=== PATIENT | female | born 1980 | race Caucasian/White ===

== ENCOUNTER 2022-09-30 14:36 | Outpatient (CLI) | payer OTHER, SELFPAY ==
--- NOTE | 2022-09-30 15:20 | CRLHL7_ITS ---
For Patients: As a result of the Century Cures Act, medical imaging exams and procedure reports are released immediately into your electronic medical record. You may view this report before your referring provider. If you have questions, please contact your health care provider. BILATERAL SCREENING MAMMOGRAM WITH COMPUTER-AIDED DETECTION AND TOMOSYNTHESIS TECHNIQUE: CC and MLO views were obtained. These mammographic images have been obtained using full-field digital technique. These mammographic images were interpreted with the benefit of computer-aided detection. Breast Tomosynthesis was used in this interpretation. COMPARISON FILM: Baseline. FINDINGS: The breasts are almost entirely fatty IMPRESSION: There is no radiographic evidence for malignancy. ASSESSMENT: BI-RADS Category 1: Negative RECOMMENDATION: Routine screening mammogram in 1 year. A lay language report of this examination will be provided to the patient. Rudy Rios M.D. Diagnostic Radiologist [email or web address] Transcribed: 1:48 p.mBrigido monae/Dictated by: Rudy Rios MD @ 10/01/2022 9:20:00 AM (Electronically Signed)
== END 2022-09-30 14:37 | disposition home or self-care (01) ==
PROVIDERS: PCP Family Medicine; Visit Provider Family Medicine
DX: Z12.31 Encounter for screening mammogram for malignant neoplasm of breast (principal)
CPT/HCPCS: 77063; 77067

== ENCOUNTER 2023-02-14 22:02 | Emergency (ER) | payer OTHER, SELFPAY ==
[2023-02-14 22:12] VITALS: BP 143/93; PULSE 95; RESP 20; TEMP 36.3; O2SAT 98; BMI 44.7
--- NOTE | 2023-02-14 22:17 | CRLHL7_ITS ---
For Patients: As a result of the Cures Act, medical imaging exams and procedure reports are released immediately into your electronic medical record. You may view this report before your referring provider. If you have questions, please contact your health care provider. INDICATION: Smashed with tree ranch, pain and swelling. TECHNIQUE: Left hand 3 views. Permanently recorded images are archived. COMPARISON: None. FINDINGS: No acute fracture or aggressive osseous lesion. Alignment is normal. The joint spaces are preserved. The soft tissues are unremarkable. IMPRESSION: No evidence of an acute bony abnormality. Dictated by Brain Nguyen MD @ 02/14/2023 11:49:09 PM (Electronically Signed)
[2023-02-14] MEDS: ACETAMINOPHEN 500 MG TABLET 1000 MG PO (22:56)
[2023-02-14 23:16] VITALS: BP 146/81; PULSE 84; RESP 20; O2SAT 99
--- NOTE | 2023-02-14 23:52 | ED_ITS ---
HPI - Extremity Injury (Upper) General Chief Complaint: Extremity Pain/Injury, Upper Stated Complaint: smashed her left hand Time Seen by Provider: 02/14/23 22:42 History of Present Illness HPI narrative: Patient is healthy 42-year-old woman who is not up-to-date on her tetanus shot who was trimming trees tonight when a large tree branch swung down and hit her in the left hand slamming her hand against the latter. Patient has pain across the posterior digits 2 through 5 with most impressive pain over the PIP of the 3rd digit. She has minimal skin breakdown. Her tetanus shot was done in 2011. She did not hit her head she did not lose consciousness she has no other injuries. She does have some assorted abrasions on the posterior hand. Related Data Home Medications Medication Instructions Recorded Confirmed albuterol sulfate 90 mcg/actuation 2 inhalation PRN 04/17/22 02/13/23 aerosol inhaler cetirizine 10 mg tablet 10 mg PO DAILY 04/17/22 02/13/23 cholecalciferol (vitamin D3) 125 125 mcg PO DAILY 04/17/22 02/13/23 mcg (5,000 unit) tablet cyclobenzaprine 10 mg tablet 10 mg PO TID 04/17/22 02/13/23 esomeprazole magnesium 20 mg 20 mg PO BID 04/17/22 02/13/23 capsule,delayed release fluticasone 100 mcg-salmeterol 50 1 inhalation BID 04/17/22 02/13/23 mcg/dose blistr powdr for inhalation fluticasone propionate 50 2 spray intranasal QDAY 02/13/23 02/13/23 mcg/actuation nasal spray,suspension (Flonase Allergy Relief) Previous Rx's Medication Instructions Recorded bupropion HCl 150 mg 24 hr tablet, 150 mg PO DAILY #90 tabs 04/17/22 extended release escitalopram oxalate 20 mg tablet 20 mg PO QDAY #90 tabs 04/17/22 (Lexapro) Allergies Allergy/AdvReac Type Severity Reaction Status Date / Time penicillin V Allergy Intermediate Rash Verified 02/13/23 09:49 nickel Allergy Mild Rash Verified 02/13/23 09:49 estrogens, conjugated AdvReac Intermediate dvt Verified 02/13/23 09:49 seasonal Allergy Unknown Sneezing Uncoded 02/13/23 09:49 Review of Systems Status of ROS: Reports: 10 or more systems reviewed and unremarkable except as noted in History and below [facility] Medical History Pain in both knees ?M25.561 - Pain in right knee (ICD-10) ?M25.562 - Pain in left knee (ICD-10) Obstructive sleep apnea syndrome (2018) ?G47.33 - Obstructive sleep apnea (adult) (pediatric) (ICD-10) Mild persistent asthma ?J45.30 - Mild persistent asthma, uncomplicated (ICD-10) Gastroesophageal reflux disease without esophagitis (11/07/15) ?K21.9 - Gastro-esophageal reflux disease without esophagitis (ICD-10) Depression ?F32.A - Depression, unspecified (ICD-10) Anxiety ?F41.9 - Anxiety disorder, unspecified (ICD-10) Acute deep vein thrombosis (DVT) of lower extremity (02/17/20) ?I82.409 - Acute embolism and thrombosis of unspecified deep veins of unspecified lower extremity (ICD-10) Surgical History History of carpal tunnel surgery of right wrist (2016) ?Z98.890 - Other specified postprocedural states (ICD-10) 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 Smoking Status: Never smoker Do you use any of these nicotine containing products: None How often do you have a drink containing alcohol: never AUDIT-C Alcohol total score: 0 Non-prescribed substance use: denies use Little interest or pleasure in doing things: several days Feeling down, depressed, or hopeless: several days Exam Narrative: Exam Narrative: EXAM GENERAL: Patient appears comfortable and well. EYES: No scleral icterus. ENT: Tympanic membranes and oropharynx normal. THYROID: no thyroid nodules or thyromegaly. LYMPH: No supraclavicular or cervical lymphadenopathy. SKIN: Visible skin seen during exam normal or with benign process only. EXT: Swelling and ecchymosis noted of the digits 2 through 5 posteriorly left hand. Assorted abrasions noted also on the posterior aspect of left hand. ABD: Soft, non tender, non distended. PSYCH: Good eye contact, speech is not pressured. Const: Vital Signs, click to edit/add: Vital Signs - 24 hr 02/14/23 22:12 02/14/23 23:16 Temperature 97.3 F L Pulse Rate [Pulse Oximeter] 95 84 Respiratory Rate 20 20 Blood Pressure [Ri ght Forearm] 143/93 H 146/81 H Pulse Oximetry 98 99 Oxygen Delivery Me thod Room Air Room Air Course Course Hospital Course: X-ray series upon my review shows no acute fractures of left hand. Wounds were cleaned and dressed. Vital Signs Vital signs: Initial Vital Signs Temperature 97.3 F L 02/14/23 22:12 Temperature Source Temporal Artery Scan 02/14/23 22:12 Pulse Rate 95 02/14/23 22:12 Respiratory Rate 20 02/14/23 22:12 Blood Pressure 143/93 H 02/14/23 22:12 Blood Pressure Mean 109 H 02/14/23 22:12 Pulse Oximetry 98 02/14/23 22:12 Oxygen Delivery Method Room Air 02/14/23 22:12 Vital Signs Temperature 97.3 F L 02/14/23 22:12 Pulse Rate 95 02/14/23 22:12 Respiratory Rate 20 02/14/23 22:12 Blood Pressure 143/93 H 02/14/23 22:12 Pulse Oximetry 98 02/14/23 22:12 Oxygen Delivery Method Room Air 02/14/23 22:12 Temperature 97.3 F L 02/14/23 22:12 Pulse Rate 84 02/14/23 23:16 Respiratory Rate 20 02/14/23 23:16 Blood Pressure 146/81 H 02/14/23 23:16 Pulse Oximetry 99 02/14/23 23:16 Oxygen Delivery Method Room Air 02/14/23 23:16 MDM - Extremity Injury (Upper) MDM Narrative Medical decision making narrative: Patient is a healthy 42-year-old woman who presents with contusion and abrasions of left hand. X-ray series negative for fracture. Did clean the abrasions and dressed her wounds. Her tetanus shot was updated and she will follow-up with her primary physician as needed. Differential Diagnosis Differential diagnosis: Likely sprain and strain of wrist, finger sprain, dislocation of finger and fracture of hand Discharge Plan Discharge Clinical Impression: Abrasion Condition: Stable Instructions: Abrasion (ED) Additional Instructions: Ice Tylenol Daily dressing changes Follow-up as needed Activity Level: No Restrictions Discharge Diet: Regular Prescriptions: No Action cholecalciferol (vitamin D3) 125 mcg (5,000 unit) tablet 125 mcg PO DAILY esomeprazole magnesium 20 mg capsule,delayed release(DR/EC) 20 mg PO BID cetirizine 10 mg tablet 10 mg PO DAILY albuterol sulfate 90 mcg/actuation HFA aerosol inhaler 2 inhalation PRN fluticasone propion-salmeterol 100-50 mcg/dose blister with device 1 inhalation BID cyclobenzaprine 10 mg tablet 10 mg PO TID bupropion HCl 150 mg tablet extended release 24 hr 150 mg PO DAILY Qty: 90 4RF escitalopram oxalate [Lexapro] 20 mg tablet 20 mg PO QDAY Qty: 90 4RF fluticasone propionate [Flonase Allergy Relief] 50 mcg/actuation spray,suspension 2 spray intranasal QDAY Rx Instructions: administer into each nostril Follow Up/Referrals: Alda Rod MD [Primary Care Provider] - Stand Alone [facility]
--- NOTE | 2023-02-15 00:15 | PC.NURSE ---
wound cleansed and dressed, patient states understanding to DC instructions with no further questions
== END 2023-02-15 00:14 | disposition home or self-care (01) ==
PROVIDERS: Emergency Provider Internal Medicine; PCP Family Medicine
DX: S60.512A Abrasion of left hand, initial encounter (principal); W20.8XXA Other cause of strike by thrown, projected or falling object, initial encounter
CPT/HCPCS: 73130; 90471; 99283; A9270

== ENCOUNTER 2023-05-01 10:10 | Emergency (ER) | payer OTHER, SELFPAY ==
[2023-05-01] VITALS (13 sets, daily range): BP systolic 116–118; BP diastolic 70–78; PULSE 63–87; RESP 16; TEMP 36.3; O2SAT 92–98
[2023-05-01] MEDS: predniSONE 20 MG TABLET 60 MG PO (10:42)
--- NOTE | 2023-05-01 11:22 | ED_ITS ---
HPI - General Adult General Chief complaint: Allergic Reaction Stated complaint: allergic reaction- nuts Time Seen by Provider: 05/01/23 10:32 Source: patient Mode of arrival: ambulatory Limitations: no limitations History of Present Illness HPI narrative: Patient is a 42-year-old woman who comes in an hour or two after ingesting Kristen nuts. She also had a breakfast burrito, but that did not have anything at that she would consider significantly allergy inducing. She said that she broke out in hives on her face initially, so she took some Benadryl. That is improved, but she had some itching in the back of her throat and tongue, no difficulty breathing or wheezing, no further rash. She thought her lips may be were little bit swollen. On arrival she is feeling improved. She does not have a known history of allergies to any foods but does have a son who had a peanut allergy in a tree nut allergy. He has outgrown the peanut allergy but still has a tree nut allergy. Related Data Home Medications Medication Instructions Recorded Confirmed cetirizine 10 mg tablet 10 mg PO DAILY 04/17/22 03/13/23 cholecalciferol (vitamin D3) 125 125 mcg PO DAILY 04/17/22 03/13/23 mcg (5,000 unit) tablet cyclobenzaprine 10 mg tablet 10 mg PO TID 04/17/22 03/13/23 esomeprazole magnesium 20 mg 20 mg PO BID 04/17/22 03/13/23 capsule,delayed release fluticasone propionate 50 2 spray intranasal QDAY 02/13/23 03/13/23 mcg/actuation nasal spray,suspension (Flonase Allergy Relief) Previous Rx's Medication Instructions Recorded albuterol sulfate 90 mcg/actuation 2 puff inhalation Q3-6H PRN 03/13/23 aerosol inhaler shortness of breath or wheezing #8.5 grams bupropion HCl 150 mg 24 hr tablet, 150 mg PO DAILY #90 tabs 03/13/23 extended release buspirone 5 mg tablet 5 mg PO BID #120 tabs 03/13/23 escitalopram oxalate 20 mg tablet 20 mg PO QDAY #90 tabs 03/13/23 (Lexapro) fluticasone 100 mcg-salmeterol 50 1 inh inhalation BID #60 ea 03/13/23 mcg/dose blistr powdr for inhalation epinephrine 0.3 mg/0.3 mL 0.3 ml IM Q5-15M PRN #2 ea 05/01/23 injection, auto-injector Allergies Allergy/AdvReac Type Severity Reaction Status Date / Time penicillin V Allergy Intermediate Rash Verified 03/13/23 09:44 nickel Allergy Mild Rash Verified 03/13/23 09:44 estrogens, conjugated AdvReac Intermediate dvt Verified 03/13/23 09:44 seasonal Allergy Unknown Sneezing Uncoded 03/13/23 09:44 Review of Systems Status of ROS: Reports: 10 or more systems reviewed and unremarkable except as noted in History and below [facility] Medical History (Updated 05/01/23 @ 12:28 by Meg Armstrong MD) Mild persistent asthma ?J45.30 - Mild persistent asthma, uncomplicated (ICD-10) Pain in both knees ?M25.561 - Pain in right knee (ICD-10) ?M25.562 - Pain in left knee (ICD-10) Obstructive sleep apnea syndrome (2018) ?G47.33 - Obstructive sleep apnea (adult) (pediatric) (ICD-10) Gastroesophageal reflux disease without esophagitis (11/07/15) ?K21.9 - Gastro-esophageal reflux disease without esophagitis (ICD-10) Depression ?F32.A - Depression, unspecified (ICD-10) Anxiety ?F41.9 - Anxiety disorder, unspecified (ICD-10) Acute deep vein thrombosis (DVT) of lower extremity (02/17/20) ?I82.409 - Acute embolism and thrombosis of unspecified deep veins of unspeci fied lower extremity (ICD-10) Surgical History History of carpal tunnel surgery of right wrist (2016) ?Z98.890 - Other specified postprocedural states (ICD-10) Social History (Updated 03/13/23 @ 10:09 by Alda Rod MD) 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 Smoking Status: Never smoker Do you use any of these nicotine containing products: None How often do you have a drink containing alcohol: never AUDIT-C Alcohol total score: 0 Non-prescribed substance use: denies use Little interest or pleasure in doing things: several days Feeling down, depressed, or hopeless: nearly every day Exam Narrative: Exam Narrative: Vital signs as noted above. In general, an alert, well-appearing patient. Breathing easily. Head: Normocephalic, atraumatic. Eyes: Pupils are equal reactive. Extraocular movements are full. Conjunctivae are normal. ENT: Mucous membranes are moist. Throat is normal. No appreciable swelling at this time. Neck: Supple without lymphadenopathy. No stridor. Heart: Regular rate and rhythm. No murmur or rub. Lungs: Clear bilaterally. No increased work of breathing, crackles or wheezes. Abdomen: Soft and nontender. No organomegaly. Extremities: Well perfused. No edema. No calf tenderness. Pulses intact. Neurologic: Patient is alert and oriented to person and place. Speech is fluent. Face is symmetric. Moves all extremities equally. Affect: Normal. Skin: Warm and dry. Well perfused. No hives. Const: Vital Signs, click to edit/add: Vital Signs - 24 hr 05/01/23 10:25 05/01/23 10:30 05/01/23 11:07 Temperature 97.3 F L Pulse Rate 71 Pulse Rate [Pulse Oximeter] 87 Respiratory Rate 16 Blood Pressure Blood Pressure [Ri ght Upper Arm] 117/78 Pulse Oximetry 98 97 95 Oxygen Delivery [facility] Room Air 05/01/23 11:08 05/01/23 11:15 05/01/23 11:30 Temperature Pulse Rate 72 66 Pulse Rate [Pulse Oximeter] Respiratory Rate Blood Pressure Blood Pressure [Ri ght Upper Arm] Pulse Oximetry 94 93 92 Oxygen Delivery [facility] 05/01/23 11:32 05/01/23 11:45 05/01/23 12:00 Temperature Pulse Rate 67 73 70 Pulse Rate [Pulse Oximeter] Respiratory Rate Blood Pressure 118/73 Blood Pressure [Ri ght Upper Arm] Pulse Oximetry 95 92 [facility] 05/01/23 12:02 05/01/23 12:15 05/01/23 12:30 Temperature Pulse Rate 68 63 74 Pulse Rate [Pulse Oximeter] Respiratory Rate Blood Pressure 118/72 Blood Pressure [Ri ght Upper Arm] Pulse Oximetry 92 93 93 Oxygen Delivery [facility] 05/01/23 12:32 Temperature Pulse Rate 69 Pulse Rate [Pulse Oximeter] Respiratory Rate Blood Pressure 116/70 Blood Pressure [Ri ght Upper Arm] Pulse Oximetry 92 Oxygen Delivery Me thod Documenting provider has reviewed patient's vital signs: yes Course Course ED Course: An IV was placed here, will monitor on oximetry. I gave her prednisone 60 mg orally. Presentation is certainly suspicious for food induced allergic reaction and given that she had hives at home which seemed to respond to Benadryl. At this point I do not see an indication for epinephrine. Will monitor for a couple of hours in the ER for worsening. Patient was monitored here for couple of hours. She had complete resolution of any symptoms and is feeling back to normal. Will let her go home, prescribed prednisone and will have her use daily Zyrtec. I also sent a prescription for epi pens if needed. We discussed that allergy testing as a possibility if she would like to drill down on specific allergens. For now, avoid tree nuts. For recurrent symptoms, return to the emergency department. Vital Signs Vital signs: Initial Vital Signs Temperature 97.3 F L 05/01/23 10:25 Temperature Source Temporal Artery Scan 05/01/23 10:25 Pulse Rate 87 05/01/23 10:25 Pulse Rhythm Regular 05/01/23 10:25 Respiratory Rate 16 05/01/23 10:25 Blood Pressure 117/78 05/01/23 10:25 Blood Pressure Mean 91 05/01/23 10:25 Blood Pressure Position Sitting 05/01/23 10:25 Pulse Oximetry 98 05/01/23 10:25 Oxygen Delivery Method Room Air 05/01/23 10:25 Vital Signs Temperature 97.3 F L 05/01/23 10:25 Pulse Rate 87 05/01/23 10:25 Respiratory Rate 16 05/01/23 10:25 Blood Pressure 117/78 05/01/23 10:25 Pulse Oximetry 98 05/01/23 10:25 Oxygen Delivery Method Room Air 05/01/23 10:25 Temperature 97.3 F L 05/01/23 10:25 Pulse Rate 69 05/01/23 12:32 Respiratory Rate 16 05/01/23 10:25 Blood Pressure 116/70 05/01/23 12:32 Pulse Oximetry 92 05/01/23 12:32 Oxygen Delivery Method Room Air 05/01/23 10:25 Discharge Plan Discharge Clinical Impression: Allergic reaction Patient Disposition: Home, Self-Care Condition: Improved Instructions: General Allergic Reaction (ED) Additional Instructions: Continue your daily Zyrtec. Prednisone as prescribed. For recurrent symptoms or worsening, return to the emergency department. Consider allergy testing. EpiPen if needed. Prescriptions: New epinephrine 0.3 mg/0.3 mL auto-injector 0.3 ml IM Q5-15M PRNQty: 2 0RF Rx Instructions: do not exceed 2 doses per episode No Action cholecalciferol (vitamin D3) 125 mcg (5,000 unit) tablet 125 mcg PO DAILY esomeprazole magnesium 20 mg capsule,delayed release(DR/EC) 20 mg PO BID cetirizine 10 mg tablet 10 mg PO DAILY cyclobenzaprine 10 mg tablet 10 mg PO TID fluticasone propionate [Flonase Allergy Relief] 50 mcg/actuation spray,suspension 2 spray intranasal QDAY Rx Instructions: administer into each nostril fluticasone propion-salmeterol 100-50 mcg/dose blister with device 1 inh inhalation BID Qty: 60 12RF buspirone 5 mg tablet 5 mg PO BID Qty: 120 0RF bupropion HCl 150 mg tablet extended release 24 hr 150 mg PO DAILY Qty: 90 4RF escitalopram oxalate [Lexapro] 20 mg tablet 20 mg PO QDAY Qty: 90 4RF albuterol sulfate 90 mcg/actuation HFA aerosol inhaler 2 puff inhalation Q3-6H PRN (Reason: shortness of breath or wheezing) Qty: 8.5 4RF Follow Up/Referrals: Alda Rod MD [Primary Care Provider] - Stand Alone Forms: [facility] Info Instructions
== END 2023-05-01 12:42 | disposition home or self-care (01) ==
PROVIDERS: Emergency Provider Emergency Medicine; PCP Family Medicine
DX: T78.1XXA Other adverse food reactions, not elsewhere classified, initial encounter (principal); L50.9 Urticaria, unspecified
CPT/HCPCS: 94761; 99283; 99284; J7512

== ENCOUNTER 2023-05-22 09:30 | Outpatient (RCR) | payer OTHER, SELFPAY | END 2023-07-01 15:54 | disposition home or self-care (01) | PROVIDERS: PCP Family Medicine; Visit Provider Family Medicine | DX: M72.2 Plantar fascial fibromatosis (principal); M25.572 Pain in left ankle and joints of left foot; Z51.89 Encounter for other specified aftercare | CPT/HCPCS: 97110; 97140; 97161 ==

== ENCOUNTER 2023-06-09 19:46 | Outpatient (CLI) | payer OTHER, SELFPAY ==
--- NOTE | 2023-06-17 08:54 | W.PM.SLEEP ---
Sleep Study Details Details Interpreting Provider: Alyson Date of Sleep Study: 06/09/23 Sleep Study Details: STUDY TYPE:? Home unattended ? BMI:? 48.7 ORDERING PROVIDER:? Viola INDICATION:? Concerns about sleep apnea ? SLEEP SUMMARY:? 456 minutes monitored RESPIRATORY SUMMARY:? AHI 32, supine 30, left lateral 36, right lateral 17.6 Low oxygen 79 34.9% of study oxygen less than 90% Snoring 49.8% PERIODIC LIMB MOVEMENTS OF SLEEP:? Not recorded during home study CARDIAC:? Range 54-87 beats per minute, mean 67.8 beats per minute IMPRESSION:? Severe obstructive sleep apnea with significant hypo oxygenation RECOMMENDATION: Treatment options include AutoSet CPAP, weight loss and possibly dental appliance. Once effective therapy is established would recommend an overnight oximetry study.
--- NOTE | 2023-06-25 08:30 | W.PM.SLEEP ---
Sleep Study Details Details Interpreting Provider: Alyson Date of Sleep Study: 06/09/23 Sleep Study Details: STUDY TYPE:? Home unattended ? BMI:? 48.7 ORDERING PROVIDER:? Viola INDICATION:? Concerns about sleep apnea ? SLEEP SUMMARY:? 456 minutes monitored RESPIRATORY SUMMARY:? AHI 32, supine 30, left lateral 36, right lateral 17.6 Low oxygen 79 34.9% of study oxygen less than 90% Snoring 49.8% PERIODIC LIMB MOVEMENTS OF SLEEP:? Not recorded during home study CARDIAC:? Range 54-87, mean 67.8 beats per minute IMPRESSION:? Severe obstructive sleep apnea with significant hypo oxygenation RECOMMENDATION: Weight loss is recommended Recommend CPAP auto set 4-18 with close follow-up. Once effective therapy is established overnight oximetry study should be performed.
== END 2023-06-09 19:47 | disposition home or self-care (01) ==
LOC: SLEEP 19:47
PROVIDERS: PCP Family Medicine; Visit Provider Family Medicine
DX: G47.33 Obstructive sleep apnea (adult) (pediatric) (principal)
CPT/HCPCS: 95806

== ENCOUNTER 2023-07-03 07:06 | Outpatient (CLI) | payer OTHER, SELFPAY ==
--- NOTE | 2023-07-03 07:15 | MR_ITS ---
[facility] [address] [facility] [address] Phone:?[phone] Fax:?[phone] Referring Physician Information: Kareem Freitas M.D. [address] [facility] [address] Phone:?[phone] Fax:?[phone] Patient:Len Mooney D.O.B:?1980 Sex:?Female Phone:? [facility] MRN:?[id number] Exam Date:?07/03/2023 EXAM: MRI of the LEFT KNEE, without contrast CLINICAL INFORMATION: Female, 43 years old, with left knee pain. INDICATION: Evaluate knee pain. PRIOR SURGERY: None reported. PLAIN FILMS: None available. COMPARISONS: No prior MRIs available. TECHNICAL INFORMATION: Using a 1.5T MR scanner and a localizing surface coil: sagittals: PD, T2FS coronals: PD, T2, STIR axials: PD, T2FS SEDATION: None CONTRAST: None FINDINGS: Knee joint: Effusion: Small left knee effusion, with synovitis. Popliteal cyst: Medium-sized, unruptured popliteal (Brasher's) cyst. Loose bodies: None. Subcutaneous and extra-articular soft tissues: Approximately 2.5 x 1.7 x 2.9 cm ganglion cyst is present arising from the femoral attachment of the lateral gastrocnemius (coronal STIR series 8 image 25 and axial T2FS series 4 image 6). Ligaments: ACL: Intact ACL anteromedial and posterolateral bundles, without sprain or tear. PCL: Intact PCL, without acute or chronic injury. MCL: Intact MCL superficial and deep layers, without injury. LCL: Intact LCL, without injury. Posterolateral corner: No posterolateral corner soft tissue injury. Popliteus, biceps femoris, iliotibial band, popliteofibular ligament and lateral gastrocnemius are intact. Posteromedial corner: No posteromedial corner soft tissue injury. Semimembranosus, pes anserine tendons and posterior oblique ligament are without injury, tendinopathy or bursitis. Extensor mechanism: Patellar tendon: Intact, without tendinopathy. Quadriceps tendon: Intact, without tendinopathy. Retinacula: Medial and lateral retinacula are intact. Fat pads: Mild edema is present throughout the knee fat pads. Medial compartment: Medial meniscus: No articular surface, meniscosynovial junction or root tear. No displacement, extrusion or parameniscal cyst. Medial femoral condyle: No chondromalacia or osteochondral abnormality. Medial tibial plateau: No chondromalacia or osteochondral abnormality. Lateral compartment: Lateral meniscus: No articular surface, meniscosynovial junction or root tear. No displacement, extrusion or parameniscal cyst. Lateral femoral condyle: No chondromalacia or osteochondral abnormality. Lateral tibial plateau: No chondromalacia or osteochondral abnormality. Patellofemoral joint: Patella: Generalized grade III/IV chondromalacia of the patella, with mild- moderate osteophytosis. Trochlea: Generalized grade III/IV chondromalacia of the lateral facet and central sulcus of the trochlea. Proximal tibiofibular joint: Unremarkable, without evidence of ligament sprain injury, joint effusion or adjacent marrow edema. Bones: No stress/occult fractures or other marrow edema/pathology. IMPRESSION: 1. Moderate-advanced osteoarthritis of the patellofemoral compartment. 2. Small knee joint effusion with a medium-sized, unruptured Brasher's cyst. 3. Approximately 2.5 x 1.7 x 2.9 cm ganglion cyst arising from the femoral attachment of the lateral gastrocnemius. 4. No cruciate or collateral ligament sprain/tear. 5. No medial or lateral meniscal tear. 6. No osteochondral abnormality of the medial and lateral compartment. BC Electronically signed on 07/03/2023 10:48:00 AM by Pan Aviles M.D.
== END 2023-07-03 07:07 | disposition home or self-care (01) ==
LOC: MRI 07:07
PROVIDERS: PCP Family Medicine; Visit Provider Internal Medicine
DX: M25.562 Pain in left knee (principal); M17.12 Unilateral primary osteoarthritis, left knee; M25.462 Effusion, left knee
CPT/HCPCS: 73721

== ENCOUNTER 2023-10-07 15:39 | Outpatient (CLI) | payer OTHER, SELFPAY ==
--- NOTE | 2023-10-07 16:40 | MM_ITS ---
Patient: PARVEZ ABEL Facility:?[facility] Patient ID:?[id number] Site Patient ID:?[id number]. Site :?1980 Study:?XRay-Breast Bilateral 3D screening mammogram w/cad-10/07/2023 4:43:52 PM Ordering Physician:JERMAINE Final Report: BILATERAL SCREENING MAMMOGRAM WITH COMPUTER-AIDED DETECTION AND TOMOSYNTHESIS TECHNIQUE: CC and MLO views were obtained. These mammographic images have been obtained using full-field digital technique. These mammographic images were interpreted with the benefit of computer-aided detection. Breast Tomosynthesis was used in this interpretation. COMPARISON FILM: 09/30/22. FINDINGS: The breasts are almost entirely fatty. IMPRESSION: There is no radiographic evidence for malignancy. ASSESSMENT: BI-RADS Category 1: Negative RECOMMENDATION: Routine screening mammogram in 1 year. A lay language report of this examination will be provided to the patient. Rudy Rios M.D. Diagnostic Radiologist [email or web address] DSM/sp R& Transcribed: 4:29 p.m. SP/Dictated by: Rudy Rios MD @ 10/08/2023 11:24:00 AM Signed by:?Rudy Rios MD @10/08/2023 4:30:54 PM (Electronic Signature)
== END 2023-10-07 15:40 | disposition home or self-care (01) ==
LOC: MAMMO 15:41
PROVIDERS: PCP Family Medicine; Visit Provider Family Medicine
DX: Z12.31 Encounter for screening mammogram for malignant neoplasm of breast (principal)
CPT/HCPCS: 77063; 77067

== ENCOUNTER 2023-10-25 19:17 | Emergency (ER) | payer OTHER, SELFPAY ==
[2023-10-25 19:31] VITALS: BP 129/81; PULSE 84; RESP 18; TEMP 36.5; O2SAT 99; BMI 50.3
[2023-10-25 20:00] LABS: Appearance Urine Clear (Clear); Bilirubin Urine Negative (Negative); Blood Urine Negative (Negative); Color Urine Dark yellow (Yellow); Glucose Urine Negative (Negative); Ketones Urine Negative (Negative); Leukocyte Esterase Urine Negative (Negative); Nitrite Urine Negative (Negative); Protein Urine Negative (Negative); Specific Gravity Urine >= 1.030 (1.000-1.030); Urobilinogen Urine 0.2 (0.2-1.0); pH Urine 5.5 (5.0-8.5)
[2023-10-25 20:09] LABS: RBC Urine 0-2 (0-2); Squamous Epithelial Cell Urine Moderate (None-Few); WBC Urine 0-2 (0-5)
[2023-10-25 20:10] LABS: Amorphous Sediment Urine Few; Bacteria Urine Few; Mucus Urine Moderate
[2023-10-25 20:16] LABS: Ur HCG Qualitative* Negative (Negative)
--- NOTE | 2023-10-25 20:20 | CT_ITS ---
Patient: PARVEZ ABEL Facility:?[facility] Patient ID:?[id number] Site Patient ID:?[id number]. Site :?1980 Study:?CT-Abdomen/Pelvis with 150cc [id number] contrast-10/25/2023 9:23:29 PM Ordering Physician:carlie pryor Final Report: INDICATION: Right lower quadrant abdominal pain and nausea. TECHNIQUE: CT abdomen and pelvis acquired with 150 cc Isovue 370 IV contrast. COMPARISON: None. FINDINGS: Lower chest: Unremarkable. Liver: Unremarkable. Normal in size and attenuation. No suspicious masses. Gallbladder and bile ducts: Unremarkable. No stones or inflammation. No biliary dilatation. Pancreas: Unremarkable. No mass or inflammation. Spleen: Unremarkable. Normal in size. No masses. Adrenal glands: Unremarkable. No nodules. Kidneys: Unremarkable. No suspicious masses, stones, or hydronephrosis. GI tract: Unremarkable. Normal in caliber. No sign of mass or inflammation. Normal appendix. Vasculature: Abdominal aorta is normal in caliber. Mesenteric arteries are patent. Lymph nodes: No lymphadenopathy. Peritoneum/Abdominal Wall: Unremarkable. No sign of mass or infiltration. No free air or significant free fluid. Pelvis: Unremarkable. Bones: Unremarkable for age. IMPRESSION: Unremarkable CT of the abdomen and pelvis. No findings to explain right lower quadrant pain or nausea. Specifically the appendix and GI tract are normal. Please note that all CT scans at this facility use dose modulation, iterative reconstruction, and/or weight-based dosing when appropriate to reduce radiation dose to as low as reasonably achievable. Dictated by Prabhakar Cruz MD @ 10/25/2023 9:48:58 PM Signed by:?Prabhakar Cruz MD @10/25/2023 9:48:58 PM (Electronic Signature)
--- NOTE | 2023-10-25 20:24 | ED_ITS ---
HPI - General Adult General Date Seen: 10/25/23 Chief complaint: Abdominal Pain Stated complaint: nausea, lower right abdominal pain Time Seen by Provider: 10/25/23 20:02 Source: patient, RN notes reviewed and old records reviewed Mode of arrival: ambulatory Limitations: no limitations History of Present Illness HPI narrative: Patient is a 43-year-old woman who presents for evaluation of right lower quadrant/pelvic pain. She says she woke up this morning feeling nauseated, this continued throughout the day. She had a small soft bowel movement, no blood, denies diarrhea or constipation. She has not had any vomiting. She developed pain in the right lower quadrant a few hours prior to arrival which has continued and she says feels worse than when it started. Pain is sharp. She d enies fevers, urinary symptoms. Her last menstrual cycle was about 3 and half weeks ago, she notes that she does sometimes get mittelschmerz type pain but this is the wrong time in her cycle. Denies suspicion of . No vaginal bleeding or discharge. She has not eaten very much today because of the nausea, last had some crackers around 5:00 p.m.. Denies prior abdominal surgeries, history history of unprovoked DVT about 4 years ago, was treated with Xarelto for about a year but is no longer anticoagulated. Notes a history of GERD, sleep apnea on CPAP. She does not smoke, rare alcohol use. Related Data Home Medications Medication Instructions Recorded Confirmed cetirizine 10 mg tablet 10 mg PO DAILY 04/17/22 07/09/23 cholecalciferol (vitamin D3) 125 125 mcg PO DAILY 04/17/22 07/09/23 mcg (5,000 unit) tablet cyclobenzaprine 10 mg tablet 10 mg PO TID 04/17/22 07/09/23 esomeprazole magnesium 20 mg 20 mg PO BID 04/17/22 07/09/23 capsule,delayed release fluticasone propionate 50 2 spray intranasal QDAY 02/13/23 07/09/23 mcg/actuation nasal spray,suspension (Flonase Allergy Relief) albuterol sulfate 2.5 mg/3 mL mg inhalation PRN 07/09/23 07/09/23 (0.083 %) solution for nebulization celecoxib 200 mg capsule 200 mg PO BID 07/09/23 07/09/23 multivitamin (Multiple Vitamins 1 tab PO QDAY 07/09/23 07/09/23 tablet) Previous Rx's Medication Instructions Recorded albuterol sulfate 90 mcg/actuation 2 puff inhalation Q3-6H PRN 03/13/23 aerosol inhaler shortness of breath or wheezing #8.5 grams bupropion HCl 150 mg 24 hr tablet, 150 mg PO DAILY #90 tabs 03/13/23 extended release buspirone 5 mg tablet 5 mg PO BID #120 tabs 03/13/23 escitalopram oxalate 20 mg tablet 20 mg PO QDAY #90 tabs 03/13/23 (Lexapro) fluticasone 100 mcg-salmeterol 50 1 inh inhalation BID #60 ea 03/13/23 mcg/dose blistr powdr for inhalation epinephrine 0.3 mg/0.3 mL 0.3 ml IM Q5-15M PRN #2 ea 05/01/23 injection, auto-injector Allergies Allergy/AdvReac Type Severity Reaction Status Date / Time hazelnut Allergy Severe Verified 07/10/23 09:16 avocado Allergy Intermediate Numbness Verified 07/10/23 09:16 penicillin V Allergy Intermediate Rash Verified 07/10/23 09:16 nickel Allergy Mild Rash Verified 07/10/23 09:16 estrogens, conjugated AdvReac Intermediate dvt Verified 07/10/23 09:16 tree nuts Allergy Intermediate Numbness Uncoded 07/10/23 09:16 seasonal Allergy Unknown Sneezing Uncoded 07/10/23 09:16 Review of Systems Status of ROS: Reports: 10 or more systems reviewed and unremarkable except as noted in History and below [facility] Medical History Closed fracture of phalanx of left fifth toe ?S92.502A - Displaced unspecified fracture of left lesser toe(s), initial encounter for closed fracture (ICD-10) Knee pain ?M25.569 - Pain in unspecified knee (ICD-10) Mild persistent asthma ?J45.30 - Mild persistent asthma, uncomplicated (ICD-10) Pain in both knees ?M25.561 - Pain in right knee (ICD-10) ?M25.562 - Pain in left knee (ICD-10) Obstructive sleep apnea syndrome (2018) ?G47.33 - Obstructive sleep apnea (adult) (pediatric) (ICD-10) Gastroesophageal reflux disease without esophagitis (11/07/15) ?K21.9 - Gastro-esophageal reflux disease without esophagitis (ICD-10) Depression ?F32.A - Depression, unspecified (ICD-10) Anxiety ?F41.9 - Anxiety disorder, unspecified (ICD-10) Acute deep vein thrombosis (DVT) of lower extremity (02/17/20) ?I82.409 - Acute embolism and thrombosis of unspecified deep veins of unspecified lower extremity (ICD-10) Surgical History History of carpal tunnel surgery of left wrist (05/19/19) ?Z98.890 - Other specified postprocedural states (ICD-10) History of carpal tunnel surgery of right wrist (05/09/15) ?Z98.890 - Other specified postprocedural states (ICD-10) Social History Narrative: , [employer]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 Smoking Status: Never smoker Do you use any of these nicotine containing products: None Second hand tobacco smoke exposure: No How often do you have a drink containing alcohol: 2-4 times a month AUDIT-C Alcohol total score: 2 Non-prescribed substance use: marijuana (any form) Little interest or pleasure in doing things: several days Feeling down, depressed, or hopeless: nearly every day Exam Narrative: Exam Narrative: Vital signs as noted above. In general, an alert, well-appearing patient. Looks comfortable. Head: Normocephalic, atraumatic. Eyes: Pupils are equal reactive. Extraocular movements are full. Conjunctivae are normal. ENT: Mucous membranes are moist. Neck: Supple without lymphadenopathy. Heart: Regular rate and rhythm. No murmur or rub. Lungs: Clear bilaterally. No increased work of breathing, crackles or wheezes. Abdomen: Patient is significantly overweight, exam is somewhat limited due to this. She has some pain in the right lower quadrant and pelvis without rebound, obvious rigidity or guarding. Extremities: Well perfused. No edema. No calf tenderness. Pulses intact. Neurologic: Patient is alert and oriented to person and place. Speech is fluent. Face is symmetric. Moves all extremities equally. Affect: Normal. Skin: Warm and dry. Well perfused. Const: Vital Signs, click to edit/add: Vital Signs - 24 hr 10/25/23 19:31 Temperature 97.7 F Pulse Rate [Left P ulse Oximeter] 84 Respiratory Rate 18 Blood Pressure [Ri ght Upper Arm] 129/81 Pulse Oximetry 99 Oxygen Delivery Me thod Room Air Documenting provider has reviewed patient's vital signs: yes Course Course ED Course: Diagnostic considerations include intestinal colic, constipation, appendicitis, kidney stone, ovarian cyst, UTI, ectopic , among others. Urine an UPT, blood work pending. If test is negative will proceed with CT scan to evaluate for possible kidney stone, signs of appendicitis or ovarian cyst rupture. Workup here was fairly unrevealing. She did end up asking for something for pain and nausea, was given Toradol and Zofran is feeling significantly improved. Did not have any vomiting while here. Labs showed a normal white blood cell count of 8.9, normal diff, normal hemoglobin and platelets. Metabolic panel normal, LFTs normal, CRP of 0.5. Lipase 50. Urine was somewhat concentrated but otherwise negative, 0-2 red cells 0-2 white cells. Moderate squames, few bacteria. test was negative. CT scan by my review did not show any obvious findings such as kidney stone, hydronephrosis, diverticulitis, appendicitis or free fluid in the pelvis. Read as unremarkable by Radiology, as follows:FINDINGS: Lower chest: Unremarkable. Liver: Unremarkable. Normal in size and attenuation. No suspicious masses. Gallbladder and bile ducts: Unremarkable. No stones or inflammation. No biliary dilatation. Pancreas: Unremarkable. No mass or inflammation. Spleen: Unremarkable. Normal in size. No masses. Adrenal glands: Unremarkable. No nodules. Kidneys: Unremarkable. No suspicious masses, stones, or hydronephrosis. GI tract: Unremarkable. Normal in caliber. No sign of mass or inflammation. Normal appendix. Vasculature: Abdominal aorta is normal in caliber. Mesenteric arteries are patent. Lymph nodes: No lymphadenopathy. Peritoneum/Abdominal Wall: Unremarkable. No sign of mass or infiltration. No free air or significant free fluid. Pelvis: Unremarkable. Bones: Unremarkable for age. IMPRESSION: Unremarkable CT of the abdomen and pelvis. No findings to explain right lower quadrant pain or nausea. Specifically the appendix and GI tract are normal. Have discussed all this with her. One copy at is that she has only had pain for few hours, I think therefore that early appendicitis is difficult to entirely rule out even with negative CT scan. She has a benign exam, discussed with her if she has persistent, worsening pain over the next 12-24 hours we should re- evaluate. Otherwise, bland diet, hydrate. Return for severe pain, fevers, vomiting or other acute worsening. Primary care follow-up for mild persistent or recurrent symptoms. Vital Signs Vital signs: Initial Vital Signs Temperature 97.7 F 10/25/23 19:31 Temperature Source Temporal Artery Scan 10/25/23 19:31 Pulse Rate 84 10/25/23 19:31 Pulse Rhythm Regular 10/25/23 19:31 Respiratory Rate 18 10/25/23 19:31 Blood Pressure 129/81 10/25/23 19:31 Blood Pressure Mean 97 10/25/23 19:31 Blood Pressure Position Sitting 10/25/23 19:31 Pulse Oximetry 99 10/25/23 19:31 Oxygen Delivery Method Room Air 10/25/23 19:31 Vital Signs Temperature 97.7 F 10/25/23 19:31 Pulse Rate 84 10/25/23 19:31 Respiratory Rate 18 10/25/23 19:31 Blood Pressure 129/81 10/25/23 19:31 Pulse Oximetry 99 10/25/23 19:31 Oxygen Delivery Method Room Air 10/25/23 19:31 Temperature 97.7 F 10/25/23 19:31 Pulse Rate 84 10/25/23 19:31 Respiratory Rate 18 10/25/23 19:31 Blood Pressure 129/81 10/25/23 19:31 Pulse Oximetry 99 10/25/23 19:31 Oxygen Delivery Method Room Air 10/25/23 19:31 Medications Administered Medications: Generic Name Dose Route Start Last Admin Trade Name Freq PRN Reason Stop Dose Admin Sodium Chloride 1,000 mls @ 1,000 mls/hr 10/25/23 20:30 10/25/23 20:45 0.9 % Sodium Chloride 1000 Ml IV 10/25/23 21:29 1,000 mls/hr .Q1H KAYLEIGH Administration Ketorolac Tromethamine 15 mg 10/25/23 21:22 10/25/23 21:41 Ketorolac 15 Mg/Ml Inj IVP 10/25/23 21:23 15 mg ONCE ONE Administration Ondansetron HCl 4 mg 10/25/23 21:22 10/25/23 21:41 Ondansetron 2 Mg/Ml Inj IVP 10/25/23 21:23 4 mg ONCE ONE Administration Medical Decision Making Lab Data Labs: Lab Results 10/25/23 10/25/23 Range/Units 19:45 20:04 WBC 8.91 (4.50-11.00) K/uL RBC 4.67 (4.00-5.20) m/uL Hgb 12.4 (12.0-16.0) gm/dL Hct 39.1 (33.0-51.0) % MCV 84 (80-100) fL MCH 27 (26-34) pg MCHC 32 (32-36) gm/dL RDW Coeff of Sujatha 14.5 (11.5-15.5) % Plt Count 304 (140-440) K/uL Neut % (Auto) 65.7 (42.0-72.0) % Lymph % (Auto) 22.4 (20-44) % [place] % (Auto) 6.2 (0.0-11.0) % Eos % (Auto) 5.4 (0.0-7.0) % Baso % (Auto) 0.2 (0.0-3.0) % Neut # (Auto) 5.85 (1.7-7.0) K/uL Lymph # (Auto) 2.00 (0.90-2.90) K/uL [place] # (Auto) 0.60 (0.00-0.90) K/UL Eos # (Auto) 0.48 (0.00-0.50) K/uL Baso # (Auto) 0.02 (0.00-0.30) K/uL Abs Immat Gran (auto) 0.01 (0.00-0.30) K/uL Imm/Tot Granulo (auto) 0.1 % Sodium 138 (135-149) mmol/L Potassium 4.0 (3.6-5.1) mmol/L Chloride 105 (96-114) mmol/L Carbon Dioxide 26 (20-32) mmol/L Anion Gap 7 (7-15) mEq/L BUN 13 (5-24) mg/dL Creatinine 0.7 (0.5-1.5) mg/dL Estimated Creat Clear 102.85 Estimated GFR 111 ml/min Glucose 104 (60-115) mg/dL Calcium 9.0 (8.4-10.6) mg/dL Total Bilirubin 0.4 (0.1-1.5) mg/dL Direct Bilirubin 0.1 (0.0-0.5) mg/dL AST 29 (12-35) U/L ALT 25 (4-35) U/L Alkaline Phosphatase 75 (40-150) U/L C-Reactive Protein 0.5 (0.5-1.0) mg/dL Total Protein 7.6 (6.0-8.3) g/dL Albumin 4.2 (3.3-5.0) g/dL Lipase 50 (23-300) U/L Urine Color Dark yellow (Yellow) Urine Appearance Clear (Clear) Urine pH 5.5 (5.0-8.5) Ur Specific [place] >= 1.030 (1.000-1.030) Urine Protein Negative (Negative) Urine Glucose (UA) Negative (Negative) Urine Ketones Negative (Negative) Urine Blood Negative (Negative) Urine Nitrite Negative (Negative) Urine Bilirubin Negative (Negative) Urine Urobilinogen 0.2 (0.2-1.0) Ur Leukocyte Esterase Negative (Negative) Urine RBC 0-2 (0-2) Urine WBC 0-2 (0-5) Ur Squamous Epith Cells Moderate A (None-Few) Amorphous Sediment Few A (None) Urine Bacteria Few A (None) Urine Mucus Moderate A (None) Urine HCG, Qual Negative (Negative) Discharge Plan Discharge Clinical Impression: Abdominal pain Patient Disposition: Home, Self-Care Condition: Improved Instructions: Abdominal Pain (ED) Additional Instructions: Your evaluation today is reassuring, there is no sign of an infectious or surgical cause for your symptoms. However, because you have had symptoms for fairly short amount of time, I cannot entirely rule out the possibility of early appendicitis. If your pain is persistent and worsening over the next 12-24 hours, he should be seen again for re-evaluation. Otherwise, return for severe symptoms, new symptoms such as vomiting or fever. Follow-up with primary care as needed for mild persistent/recurrent symptoms. Prescriptions: No Action cholecalciferol (vitamin D3) 125 mcg (5,000 unit) tablet 125 mcg PO DAILY esomeprazole magnesium 20 mg capsule,delayed release(DR/EC) 20 mg PO BID cetirizine 10 mg tablet 10 mg PO DAILY cyclobenzaprine 10 mg tablet 10 mg PO TID multivitamin [Multiple Vitamins] Tablet 1 tab PO QDAY albuterol sulfate 2.5 mg /3 mL (0.083 %) solution for nebulization inhalation PRN celecoxib 200 mg capsule 200 mg PO BID fluticasone propionate [Flonase Allergy Relief] 50 mcg/actuation spray,suspension 2 spray intranasal QDAY Rx Instructions: administer into each nostril fluticasone propion-salmeterol 100-50 mcg/dose blister with device 1 inh inhalation BID Qty: 60 12RF buspirone 5 mg tablet 5 mg PO BID Qty: 120 0RF bupropion HCl 150 mg tablet extended release 24 hr 150 mg PO DAILY Qty: 90 4RF escitalopram oxalate [Lexapro] 20 mg tablet 20 mg PO QDAY Qty: 90 4RF albuterol sulfate 90 mcg/actuation HFA aerosol inhaler 2 puff inhalation Q3-6H PRN (Reason: shortness of breath or wheezing) Qty: 8.5 4RF epinephrine 0.3 mg/0.3 mL auto-injector 0.3 ml IM Q5-15M PRNQty: 2 0RF Rx Instructions: do not exceed 2 doses per episode Follow Up/Referrals: Alda Rod MD [Primary Care Provider] - Stand Alone [facility] Inst[facility]
[2023-10-25 20:30] VITALS: BP 116/72; PULSE 73; RESP 18; O2SAT 99
[2023-10-25 20:39] LABS: Basophils Absolute Auto 0.02 K/uL (0.00-0.30); Basophils Percent Auto 0.2 % (0.0-3.0); Eosinophils Absolute Auto 0.48 K/uL (0.00-0.50); Eosinophils Percent Auto 5.4 % (0.0-7.0); Hematocrit 39.1 % (33.0-51.0); Hemoglobin* 12.4 gm/dL (12.0-16.0); Immature Granulocytes Abs Auto 0.01 K/uL (0.00-0.30); Immature Granulocytes Pct Auto 0.1 %; Lymphocytes Percent Auto 22.4 % (20-44); Mean Corpuscular HGB Conc 32 gm/dL (32-36); Mean Corpuscular Hemoglobin 27 pg (26-34); Mean Corpuscular Volume 84 fL (80-100); Monocytes Percent Auto 6.2 % (0.0-11.0); Neutrophils Absolute Auto 5.85 K/uL (1.7-7.0); Neutrophils Percent Auto 65.7 % (42.0-72.0); Platelet Count* 304 K/uL (140-440); RDW Coefficient of Variation % 14.5 % (11.5-15.5); Red Blood Count 4.67 m/uL (4.00-5.20); White Blood Count* 8.91 K/uL (4.50-11.00)
[2023-10-25 20:45] LABS: Slide Review Reflex No
[2023-10-25] MEDS: 0.9 % SODIUM CHLORIDE 1000 ml 1,000 ML IV (20:45)
[2023-10-25 20:50] LABS: Chloride* 105 mmol/L (96-114)
[2023-10-25 20:51] LABS: Albumin* 4.2 g/dL (3.3-5.0); Sodium* 138 mmol/L (135-149)
[2023-10-25 20:53] LABS: Creatinine* 0.7 mg/dL (0.5-1.5); Est. Creatinine Clearance* 102.85; Estimated Glomerular Filt Rate 111 ml/min
[2023-10-25 20:54] LABS: Alkaline Phosphatase* 75 U/L (40-150); Anion Gap 7 mEq/L (7-15); Aspartate Amino Transferase* 29 U/L (12-35); Bilirubin Direct* 0.1 mg/dL (0.0-0.5); Bilirubin Total* 0.4 mg/dL (0.1-1.5); Blood Urea Nitrogen* 13 mg/dL (5-24); Carbon Dioxide* 26 mmol/L (20-32); Lipase* 50 U/L (23-300); Total Protein* 7.6 g/dL (6.0-8.3)
[2023-10-25 20:55] LABS: Alanine Aminotransferase* 25 U/L (4-35); Glucose* 104 mg/dL (60-115)
[2023-10-25 20:57] LABS: C Reactive Protein* 0.5 mg/dL (0.5-1.0)
[2023-10-25 21:30] VITALS: BP 112/65; PULSE 75; RESP 18; O2SAT 97
[2023-10-25] MEDS: ONDANSETRON 2 MG/ML inj 4 MG IVP (21:41)
[2023-10-25] MEDS: KETOROLAC 15 MG/ML inj IVP (21:41)
[2023-10-25 22:15] VITALS: BP 102/62; PULSE 71; RESP 18; O2SAT 94
== END 2023-10-25 22:16 | disposition home or self-care (01) ==
PROVIDERS: Emergency Provider Emergency Medicine; PCP Family Medicine
DX: R10.9 Unspecified abdominal pain (principal)
CPT/HCPCS: 36415; 74177; 80048; 80076; 81001; 81025; 83690; 85025; 86140; 87086; 96361; 96374; 96375; 99284; 99285; J1885; J2405; J7030; Q9967

== ENCOUNTER 2023-11-23 13:12 | Outpatient (CLI) | payer OTHER, SELFPAY ==
--- OUTSIDE RECORDS SUMMARY | 2023-11-23 13:16 | XMS_ITS | Clinical Summary ---
Author Name Unknown Organization [employer] [facility] [employer] [facility] Address [place], [place] [address] Care Team Providers Care Medical Insurance Collector Name Role Phone Uriah Ansari MD Primary Care Provider U navailable Allergies Active Allergy Reactions Criticality Noted Date Comments Unlisted Allergen (Include Detail In Comments) Metal Penicillins Rash Tolerated Augmentin after rash with amoxicillin Medications Medication Sig Dispensed Refills Start Date End Date Status multivitamin (MVI) tablet Take 1 tablet by mouth once daily. 0 08/12/2012 Active calcium with vitamin D3 (CALCIUM 500+D) tablet Take 2-4 tablets by mouth once daily. 0 08/12/2012 Active fluticasone (50 mcg per actuation) nasal solution (FLONASE)Indications: Allergic rhinitis due to pollen Inhale 1 Brun[place] into both nostrils once daily. 1 Bottle 0 02/14/2015 Active cholecalciferol (VITAMIN D3) 2,000 unit capsuleIndications:Vi tamin D deficiency Take 1 capsule by mouth once daily. 0 04/28/2015 Active ranitidine (ZANTAC) 300 mg tabletIndications:Gas troesophageal reflux disease without esophagitis,Chronic superficial gastritis without bleeding Take 1 tablet by mouth at bedtime. 30 tablet 11 05/02/2016 Active albuterol HFA (PROAIR HFA) 90 mcg/actuation inhalerIndications:Ac zelda bronchospasm Inhale 2 Puffs by mouth 4 times daily if needed. 1 Inhaler 3 11/25/2016 Active sucralfate (CARAFATE) 1 gram tabletIndications:Chr onic superficial gastritis without bleeding,Gastroesopha geal reflux disease without esophagitis Take 1 tablet by mouth 4 times daily before meals and at bedtime. 120 tablet 5 03/06/2017 Active lansoprazole (PREVACID) 30 mg capsuleIndications:Ga stroesophageal reflux disease without esophagitis,Chronic superficial gastritis without bleeding Take 1 capsule by mouth 2 times daily before meals. 60 capsule 11 03/07/2017 Active scopolamine 1.5mg (TRANSDERM SCOP) 1.5 mg (1 mg over 3 days) patchIndications:H/O motion sickness Apply 1 Patch on dry, clean, hairless skin every 72 hours. 2 Patch 1 04/15/2017 Active fluticasone-salmetero l (ADVAIR HFA) 115-21 mcg/actuation inhalerIndications:Ac zelda bronchospasm Inhale 2 Puffs by mouth every 12 hours. 12 g 11 05/14/2017 Active Active Problems Problem Noted Date Diagnosed Date Chronic superficial gastritis without bleeding 1 Gastroesophageal reflux disease without esophagi tis 11/07/2015 Overview: EGD 10/2015 normal EGD 02/2017 normal, try Low Fodmap diet Vitamin D deficiency 04/28/2015 Acute bronchospasm 10/20/2009 Allergic rhinitis due to pollen Immunizations Name Administration Dates Next Due Influenza, IIV4 04/29/2016 Td (Age >=7 Years) 11/25/2004 Tdap 01/02/2012 Family History Medical History Relation Name Comments Arthritis Father Diabetes Father b 1947 Heart Disease Father A Fib Heart Disease Maternal Grandfather [place] Cancer Maternal Grandmother brain t umor in 60s Good Health Mother Diabetes Paternal Grandfather also richardson d WI's Cancer-colon Paternal Grandmother Relation Name Status Comments Father Maternal Grandfather Maternal Grandmother Mother Paternal Grandfather Paternal Grandmother Social History Tobacco Use Types Packs/Day Years Used Date Smoking Tobacco: Never Smokeless Tobacco: Never Tobacco Cessation:Counseling Given: Yes Alcohol Use Standard Drinks/Week Comments Yes 0 (1 standard drink = 0.6 oz pur e alcohol) rare Sex and Gender Information Value Date Recorded Sex Assigned at Not on file Gender Identity Not on file Sexual Orientation Not on file Obstetrics History Last Filed Vital Signs Vital Sign Reading Time Taken Comments Blood Pressure 110/76 03/18/2017 9:00 AM CDT Pulse 77 03/18/2017 9:00 AM CDT Temperature 36.4 ??C (97.5 ??F) 09/12/2016 8:55 AM CS T Respiratory Rate - - Oxygen Saturation 100% 03/18/2017 9:00 AM CDT Inhaled Oxygen Concentration - - Weight 117.9 kg (260 lb) 03/06/2017 1:35 PM CDT Height 172.1 cm (5' 7.75) 03/06/2017 1:35 PM CD T Body Mass Index 39.83 03/06/2017 1:35 PM CDT Plan of Treatment Health Maintenance Due Date Last Done Comments HIV for age 15-65 1997 Hepatitis C screening for age 18-79 2000 Depression screening for age 12+ 09/12/2017 09/12/2016, 12/18/2015 BMI (ht and wt on same day) for age 18+ 03/06/2018 03/06/2017, 09/12/2016, 02/01/2016, Additional history exists Tetanus booster 01/01/2022 01/02/2012, 11/25/2004 COVID-19 vaccine series ( season) 2023 Influenza for age 9-49 03/28/2024 04/29/2016 Pap test for age 21-65 02/16/2026 , 02/16/2021, 09/12/2016, Additional history exists Tdap Completed 01/02/2012, 01/02/2012 Pneumococcal series for age 6-64 Aged Out No longer eligible based on patient's age to complete this topic Procedures Procedure Name Priority Date/Time Associated Diagnosis Comments MAGISTRATE THIN PREP PAP SCREEN IMAGED Routine 02/16/2021 1:00 PM CDT from Last 3 Months or Most Recently Relevant to Health Maintenance Results * MAGISTRATE THIN PREP PAP SCREEN IMAGED (02/16/2021 1:00 PM CDT) Case Report Gynecologic Cytology Report ? Case: [id number] ? Authorizing Provider: ??Alda Rod MD ??Collected: ? 02/16/2021 1300 ? Ordering Location: ? [facility] ?Received: ?02/19/2021 0839 ? First Screen: ?Angela Olsen ? Specimen: ?MAGISTRATE ThinPrep Vial Screening, Cervical/Vaginal ? 03/01/2021 3:05 PM CDT [facility] INTERPRETATION/ RESULT NEGATIVE FOR INTRAEPITHELIAL LESION OR MALIGNANCY (NIL) (none) 03/01/2021 3:05 PM CDT [facility] IMEN ADEQUACY Satisfactory for evaluation Endocervical component present 03/01/2021 3:05 PM CDT [facility] HPV REQUEST HPV and PAP 03/01/2021 3:05 PM CDT [facility] Date of LMP 01/29/2021 03/01/2021 3:05 PM CDT [facility] Last Pap Date 09/11/2016 03/01/2021 3:05 PM CDT [facility] Last Pap Result NIL 3:05 PM CDT [facility] Additional Information 03/01/2021 3:05 PM CDT [facility] Comment: Interpreted at [facility], Central Laboratory - [address], [place] [address] Automated Review Successful 03/01/2021 3:05 PM CDT [facility] Comment:Specimen processed s uccessfully by automated window caser device, ThinPrep Imaging System, [employer] ANCILLARY TESTING MAGISTRATE HPV Ordered, Please see separate report 03/01/2021 3:05 PM CDT [facility] Note The pap test is a screening technique, not a diagnostic procedure. It is used primarily to screen for squamous cancers and precursor lesions. Published studies have shown that it is subject to both false negative and false positive results. The pap test should not be used as the sole means to diagnose or exclude pre-malignant and malignant lesions. 03/01/2021 3:05 PM CDT [facility] Other (Cervical/Vagina l) 02/16/2021 1:00 PM CDT 02/19/2021 8:39 AM CDT Alda Rod MD PATHOLOGY/[facility]O [facility] [employer] [facility] LABORATORY-CENTRAL LABORATORY [address] [place] [address], from Last 3 Months or Most Recently Relevant to Health Maintenance Care Teams Medical Insurance Collector Relationship Specialty Start Date End Date Uriah Ansari MD PCP - General 08/05/07
== END 2023-11-23 13:13 | disposition home or self-care (01) ==
LOC: NFLDUCREF 13:14
PROVIDERS: PCP Family Medicine; Visit Provider Nurse Practitioner Family
DX: R60.0 Localized edema (principal)
CPT/HCPCS: 85379

== ENCOUNTER 2023-11-23 15:02 | Emergency (ER) | payer OTHER, SELFPAY ==
--- NOTE | 2023-11-23 15:03 | US_ITS ---
Patient: PARVEZ ABEL Facility:?[facility] Patient ID:?[id number] Site Patient ID:?[id number]. Site :?1980 Study:?US-Extremity Right LEV-11/23/2023 3:53:33 PM Ordering Physician:?MARV MADISON Final Report: INDICATION: Right lower extremity redness and swelling. History of DVT. Elevated D-dimer. TECHNIQUE: Ultrasound venous duplex lower right extremity. Compression venous exam was performed using hutchinson-scale, color Doppler, and spectral Doppler imaging. COMPARISON: No prior. FINDINGS: Sonographic imaging demonstrates the right common femoral, deep femoral, superficial femoral, popliteal, posterior tibial and greater saphenous and the contralateral left common femoral veins to be fully compressible with normal color Doppler blood flow. IMPRESSION: No DVT within the right lower extremity. Dictated by Eran Rivera MD @ 11/23/2023 4:36:10 PM Dictated by: Eran Rivera MD @ 11/23/2023 16:36:15 Signed by:?Eran Rivera MD @11/23/2023 4:36:15 PM (Electronic Signature)
[2023-11-23 15:05] VITALS: BP 128/78; PULSE 93; RESP 20; TEMP 36.3; O2SAT 99; BMI 50.7
--- NOTE | 2023-11-23 15:10 | ED.GENADULT ---
HPI - General Adult General Time Seen by Provider: 15:10 Date Seen: 11/23/23 Chief complaint: Lower Extremity Swelling Stated complaint: blood clot R leg Time Seen by Provider: 11/23/23 15:03 History of Present Illness HPI narrative: This 43-year-old female is referred by Urgent Care for concern of possible right lower extremity DVT. Patient was in Urgent Care today wondering about possibility of early cellulitis. She notes in her right lower extremity she started having some pain more distally in the leg that is now wrapping around posteriorly. She had started to notice some redness over the leg in that area in the past week. She does have some reported underlying lower extremity lymphedema and venous stasis changes. Patient states she has been wearing her Aristeo hose, has seemed to help. She notes no fevers, no shortness of breath, no chest pain. She does have a history of an unprovoked DVT in her left lower extremity. She states she went through the full workup with Hematology, they did not find anything. Her D-dimer in clinic was 2.06, less than 0.5 is normal. She is referred here for ultrasound to rule out DVT. She notes no trauma. Related Data Home Medications Medication Instructions Recorded Confirmed cetirizine 10 mg tablet 10 mg PO DAILY 04/17/22 11/23/23 cholecalciferol (vitamin D3) 125 125 mcg PO DAILY 04/17/22 11/23/23 mcg (5,000 unit) tablet esomeprazole magnesium 20 mg 20 mg PO BID 04/17/22 11/23/23 capsule,delayed release fluticasone propionate 50 2 spray intranasal QDAY 02/13/23 11/23/23 mcg/actuation nasal spray,suspension (Flonase Allergy Relief) albuterol sulfate 2.5 mg/3 mL mg inhalation PRN 07/09/23 11/23/23 (0.083 %) solution for nebulization Previous Rx's Medication Instructions Recorded albuterol sulfate 90 mcg/actuation 2 puff inhalation Q3-6H PRN 03/13/23 aerosol inhaler shortness of breath or wheezing #8.5 grams fluticasone 100 mcg-salmeterol 50 1 inh inhalation BID #60 ea 03/13/23 mcg/dose blistr powdr for inhalation epinephrine 0.3 mg/0.3 mL 0.3 ml IM Q5-15M PRN #2 ea 05/01/23 injection, auto-injector bupropion HCl 150 mg 24 hr tablet, 150 mg PO DAILY #90 tabs 11/13/23 extended release escitalopram oxalate 20 mg tablet 20 mg PO QDAY #90 tabs 11/13/23 (Lexapro) phentermine 37.5 mg tablet 37.5 mg PO QDAY #30 tabs 11/13/23 cephalexin 500 mg capsule 500 mg PO TID 7 days #21 caps 11/23/23 Allergies Allergy/AdvReac Type Severity Reaction Status Date / Time hazelnut Allergy Severe Verified 11/23/23 12:39 avocado Allergy Intermediate Numbness Verified 11/23/23 12:39 penicillin V Allergy Intermediate Rash Verified 11/23/23 12:39 nickel Allergy Mild Rash Verified 11/23/23 12:39 estrogens, conjugated AdvReac Intermediate dvt Verified 11/23/23 12:39 tree nuts Allergy Intermediate Numbness Uncoded 11/23/23 12:39 seasonal Allergy Unknown Sneezing Uncoded 11/23/23 12:39 Review of Systems Narrative: As [facility]PI. [facility] History Closed fracture of phalanx of left fifth toe ?S92.502A - Displaced unspecified fracture of left lesser toe(s), initial encounter for closed fracture (ICD-10) Mild persistent asthma ?J45.30 - Mild persistent asthma, uncomplicated (ICD-10) Pain in both knees ?M25.561 - Pain in right knee (ICD-10) ?M25.562 - Pain in left knee (ICD-10) Obstructive sleep apnea syndrome (2018) ?G47.33 - Obstructive sleep apnea (adult) (pediatric) (ICD-10) Gastroesophageal reflux disease without esophagitis (11/07/15) ?K21.9 - Gastro-esophageal reflux disease without esophagitis (ICD-10) Depression ?F32.A - Depression, unspecified (ICD-10) Anxiety ?F41.9 - Anxiety disorder, unspecified (ICD-10) Acute deep vein thrombosis (DVT) of lower extremity (02/17/20) ?I82.409 - Acute embolism and thrombosis of unspecified deep veins of unspecified lower extremity (ICD-10) Surgical History History of carpal tunnel surgery of left wrist (05/19/19) ?Z98.890 - Other specified postprocedural states (ICD-10) History of carpal tunnel surgery of right wrist (05/09/15) ?Z98.890 - Other specified postprocedural states (ICD-10) Social History Narrative: , 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 Smoking Status: Former smoker Do you use any of these nicotine containing products: None Second hand tobacco smoke exposure: No How often do you have a drink containing alcohol: 2-4 times a month AUDIT-C Alcohol total score: 2 Non-prescribed substance use: marijuana (any form) Little interest or pleasure in doing things: not at all Feeling down, depressed, or hopeless: several days Exam Const: Vital Signs, click to edit/add: Vital Signs - 24 hr 11/23/23 15:05 Temperature 97.4 F L Pulse Rate [Pulse Oximeter] 93 Respiratory Rate 20 Blood Pressure [Ri ght Upper Arm] 128/78 Pulse Oximetry 99 Oxygen Delivery Me thod Room Air This 43-year-old female is alert, interactive, no apparent distress. She is ambulatory into the ED of her own accord. Sclera clear, speech normal. Lungs are clear, no wheezing or crackles. CV regular rate and rhythm no murmur. Both lower extremities have thickened appearance. Note no significant erythema, no warmth. She states she has normal light touch sensation distally. The area that she is concerned about is over the distal right lower extremity. Medially just above the medial malleolus there is a small little area of slight pinkish change that is blanchable. This could be some early venous stasis changes. There is no fluctuance in this area, it is very faint in pinkish discoloration. I note no warmth. Documenting provider has reviewed patient's vital signs: yes Course Course ED Course: Given her history of an unprovoked DVT, her symptoms of some discomfort and her being able to localize her symptoms to her right lower extremity, the accompanied elevated D-dimer, will proceed with her right lower extremity ultrasound to rule out DVT. For me clinically, exam is not very impressive as far as concerns of any infection at this time, do not believe there to be cellulitis. Reevaluation(s) Time of Reevaluation #1: 16:45 Reevaluation #1: Reviewed the negative ultrasound with patient, thankfully no DVT. We did discuss her elevated D-dimer. She may consider following up with her primary, having this redrawn to see if it just stays elevated for her. She did start Keflex that was prescribed for cellulitis from the Urgent Care today. The D-dimer can be an inflammatory marker, since she started the Keflex, will have her complete this. It is possible that there is some low lying cellulitis that is developing. We also discussed elevating and using her compression stockings. Vital Signs Vital signs: Initial Vital Signs Temperature 97.4 F L 11/23/23 15:05 Temperature Source Temporal Artery Scan 11/23/23 15:05 Pulse Rate 93 11/23/23 15:05 Respiratory Rate 20 11/23/23 15:05 Blood Pressure 128/78 11/23/23 15:05 Blood Pressure Mean 94 11/23/23 15:05 Pulse Oximetry 99 11/23/23 15:05 Oxygen Delivery Method Room Air 11/23/23 15:05 Vital Signs Temperature 97.4 F L 11/23/23 15:05 Pulse Rate 93 11/23/23 15:05 Respiratory Rate 20 11/23/23 15:05 Blood Pressure 128/78 11/23/23 15:05 Pulse Oximetry 99 11/23/23 15:05 Oxygen Delivery Method Room Air 11/23/23 15:05 Temperature 97.4 F L 11/23/23 15:05 Pulse Rate 93 11/23/23 15:05 Respiratory Rate 20 11/23/23 15:05 Blood Pressure 128/78 11/23/23 15:05 Pulse Oximetry 99 11/23/23 15:05 Oxygen Delivery Method Room Air 11/23/23 15:05 Medical Decision Making Imaging Data Venous US: Attestation: I have reviewed the pertinent imaging results. Radiologist's impression: Patient: PARVEZ ABEL Facility:?[facility] Patient ID:?[id number] Site Patient ID:?[id number]. Site :?[id number] Study:?US-Extremity Right LEV-11/23/2023 3:53:33 PM Ordering Physician:NABIL MADISON Final Report: INDICATION: Right lower extremity redness and swelling. History of DVT. Elevated D-dimer. TECHNIQUE: Ultrasound venous duplex lower right extremity. Compression venous exam was performed using hutchinson-scale, color Doppler, and spectral Doppler imaging. COMPARISON: No prior. FINDINGS: Sonographic imaging demonstrates the right common femoral, deep femoral, superficial femoral, popliteal, posterior tibial and greater saphenous and the contralateral left common femoral veins to be fully compressible with normal color Doppler blood flow. IMPRESSION: No DVT within the right lower extremity. Dictated by Eran Rivera MD @ 11/23/2023 4:36:10 PM Dictated by: Eran Rivera MD @ 11/23/2023 16:36:15 (Electronic Signature) Discharge Plan Discharge Clinical Impression: Pain in right lower leg Patient Disposition: Home, Self-Care Condition: Stable Instructions: Cellulitis (ED), Leg Pain (ED) Additional Instructions: Complete Keflex that you started. Elevate this leg, where your compression stockings as much as you are able to. Follow up in clinic with your primary care provider. You can discuss follow up on a repeat D-dimer with your primary care provider. This is not a lab we typically follow like that but do understand your interest in seen if it goes down with treatment with antibiotics for cellulitis. If you have further concerns, feel you are worsening, do recommend re-evaluation. Activity Level: Activity as Tolerated Prescriptions: No Action cholecalciferol (vitamin D3) 125 mcg (5,000 unit) tablet 125 mcg PO DAILY esomeprazole magnesium 20 mg capsule,delayed release(DR/EC) 20 mg PO BID cetirizine 10 mg tablet 10 mg PO DAILY albuterol sulfate 2.5 mg /3 mL (0.083 %) solution for nebulization inhalation PRN phentermine 37.5 mg tablet 37.5 mg PO QDAY Qty: 30 2RF escitalopram oxalate [Lexapro] 20 mg tablet 20 mg PO QDAY Qty: 90 3RF bupropion HCl 150 mg tablet extended release 24 hr 150 mg PO DAILY Qty: 90 3RF cephalexin 500 mg capsule 500 mg PO TID 7 Days Qty: 21 0RF fluticasone propionate [Flonase Allergy Relief] 50 mcg/actuation spray,suspension 2 spray intranasal QDAY Rx Instructions: administer into each nostril fluticasone propion-salmeterol 100-50 mcg/dose blister with device 1 inh inhalation BID Qty: 60 12RF albuterol sulfate 90 mcg/actuation HFA aerosol inhaler 2 puff inhalation Q3-6H PRN (Reason: shortness of breath or wheezing) Qty: 8.5 4RF epinephrine 0.3 mg/0.3 mL auto-injector 0.3 ml IM Q5-15M PRNQty: 2 0RF Rx Instructions: do not exceed 2 doses per episode Follow Up/Referrals: Alda Rod MD [Primary Care Provider] - Stand Alone Forms: [employer] Info Instructions
--- OUTSIDE RECORDS SUMMARY | 2023-11-23 15:20 | XMS_ITS | Clinical Summary ---
Author Name Unknown Organization [employer] [facility] [employer] [facility] Address [employer], [place] [address] Care Team Providers Care Licensed Prosthetist/Orthotist Name Role Phone Uriah Ansari MD Primary [...] Allergic rhinitis due to pollen Inhale 1 [place] into both nostrils once daily. 1 Bottle [...] Father A Fib Heart Disease Maternal Grandfather MD Cancer Maternal Grandmother brain t umor in 60s Good Health Mother Diabetes Paternal Grandfather also richardson d MD's Cancer-colon Paternal Grandmother Relation Name Status Comments [...] Procedure Name Priority Date/Time Associated Diagnosis Comments GIFT SHOP MANAGER THIN PREP PAP SCREEN IMAGED Routine 02/16/2021 1:00 PM CDT from Last 3 Months or Most Recently Relevant to Health Maintenance Results * GIFT SHOP MANAGER THIN PREP PAP SCREEN IMAGED (02/16/2021 1:00 PM CDT) Case Report Gynecologic Cytology Report ? Case: [id number] ? Authorizing Provider: ??Alda Rod MD ??Collected: ? 02/16/2021 1300 ? Ordering Location: ? [facility] ?Received: ?02/19/2021 0839 ? First Screen: ?Angela Olsen ? Specimen: ?GIFT SHOP MANAGER ThinPrep Vial Screening, Cervical/Vaginal ? 03/01/2021 3:05 PM CDT [facility] INTERPRETATION/ RESULT NEGATIVE FOR INTRAEPITHELIAL LESION OR MALIGNANCY (NIL) (none) 03/01/2021 3:05 PM CDT [facility] IMEN ADEQUACY Satisfactory for evaluation Endocervical component present 03/01/2021 3:05 PM CDT [facility] HPV REQUEST HPV and PAP 03/01/2021 3:05 PM CDT [facility] Date of LMP 01/29/2021 03/01/2021 3:05 PM CDT [facility] Last Pap Date 09/11/2016 03/01/2021 3:05 PM CDT [facility] Last Pap Result NIL 3:05 PM CDT [facility] Additional Information 03/01/2021 3:05 PM CDT [facility] Comment: Interpreted at [facility], Central Laboratory - [address], [place] [address] Automated Review Successful 03/01/2021 3:05 PM CDT [facility] Comment:Specimen processed s uccessfully by automated switch operators supervisor device, ThinPrep Imaging System, [employer] ANCILLARY TESTING GIFT SHOP MANAGER HPV Ordered, Please see separate report 03/01/2021 3:05 PM CDT [email or web address] Note The pap test [...] and malignant lesions. 03/01/2021 3:05 PM CDT [email or web address] Other (Cervical/Vagina l) 02/16/2021 1:00 PM CDT 02/19/2021 8:39 AM CDT Alda Rod MD PATHOLOGY/[facility] [employer] LABORATORY-CENTRAL LABORATORY [address] [place] [address], from Last 3 Months or Most Recently Relevant to Health Maintenance Care Teams Licensed Prosthetist/Orthotist Relationship Specialty Start Date End Date Uriah Ansari MD PCP - General 08/05/07
== END 2023-11-23 17:07 | disposition home or self-care (01) ==
PROVIDERS: Emergency Provider Family Medicine; PCP Family Medicine
DX: M79.661 Pain in right lower leg (principal)
CPT/HCPCS: 93971; 99283

== ENCOUNTER 2024-02-16 11:46 | Outpatient (CLI) | payer OTHER, SELFPAY ==
--- OUTSIDE RECORDS SUMMARY | 2024-02-16 11:53 | XMS_ITS | Clinical Summary ---
Author Organization [employer] [facility] [employer] [facility] Address [place], [place] [address] Care Team Providers Care Dental Chair Assembler Name Role Phone Uriah Ansari MD Primary [...] Allergic rhinitis due to pollen Inhale 1 [place] into both nostrils once daily. 1 Bottle 0 02/14/2015 Active cholecalciferol (VITAMIN D3) 2,000 unit capsuleIndications:Vi tamin D deficiency Take 1 capsule by mouth once daily. 0 04/28/2015 Active ranitidine (ZANTAC) 300 mg tabletIndications:Gas troesophageal reflux disease without esophagitis,Chronic superficial gastritis without bleeding Take 1 tablet by mouth at bedtime. 30 tablet 11 05/02/2016 Active albuterol HFA (PROAIR HFA) 90 mcg/actuation inhalerIndications:Ac [place] bronchospasm Inhale 2 Puffs by mouth 4 [...] fluticasone-salmetero l (ADVAIR HFA) 115-21 mcg/actuation inhalerIndications:Ac [place] bronchospasm Inhale 2 Puffs by mouth every [...] Father A Fib Heart Disease Maternal Grandfather MS Cancer Maternal Grandmother brain t umor in 60s Good Health Mother Diabetes Paternal Grandfather also richardson d MS's Cancer-colon Paternal Grandmother Relation Name Status Comments [...] Procedure Name Priority Date/Time Associated Diagnosis Comments FRAUD REPRESENTATIVE THIN PREP PAP SCREEN IMAGED Routine 02/16/2021 1:00 PM CDT from Last 3 Months or Most Recently Relevant to Health Maintenance Results * FRAUD REPRESENTATIVE THIN PREP PAP SCREEN IMAGED (02/16/2021 1:00 PM CDT) Case Report Gynecologic Cytology Report ? Case: [id number] ? Authorizing Provider: ??Alda Rod MD ??Collected: ? 02/16/2021 1300 ? Ordering Location: ? [facility] ?Received: ?02/19/2021 0839 ? First Screen: ?Angela Olsen ? Specimen: ?FRAUD REPRESENTATIVE ThinPrep Vial Screening, Cervical/Vaginal ? 03/01/2021 3:05 PM CDT [facility] INTERPRETATION/ RESULT NEGATIVE FOR INTRAEPITHELIAL LESION OR MALIGNANCY (NIL) (none) 03/01/2021 3:05 PM CDT [facility] IMEN ADEQUACY Satisfactory for evaluation Endocervical component present 03/01/2021 3:05 PM CDT [facility] HPV REQUEST HPV and PAP 03/01/2021 3:05 PM CDT [facility] Date of LMP 01/29/2021 03/01/2021 3:05 PM CDT [facility] Last Pap Date 09/11/2016 03/01/2021 3:05 PM CDT [facility] Last Pap Result NIL 3:05 PM CDT [facility] Additional Information 03/01/2021 3:05 PM CDT [facility] Comment: Interpreted at [facility], [facility] - [address], [place] [address] Automated Review Successful 03/01/2021 3:05 PM CDT [facility] Comment:Specimen processed s uccessfully by automated tank car mechanic device, ThinPrep Imaging System, [employer] ANCILLARY TESTING FRAUD REPRESENTATIVE HPV Ordered, Please see separate report 03/01/2021 3:05 PM CDT [facility] Note The pap test [...] and malignant lesions. 03/01/2021 3:05 PM CDT [facility] Other (Cervical/Vagina l) 02/16/2021 1:00 PM CDT 02/19/2021 8:39 AM CDT Alda Rod MD PATHOLOGY/[facility] [employer] LABOR[facility]-CENTRAL LABORATORY [address] [place] [address], [place] from Last 3 Months or Most Recently Relevant to Health Maintenance Care Teams Dental Chair Assembler Relationship Specialty Start Date End Date Uriah Ansari MD PCP - General 08/05/07
== END 2024-02-16 11:47 | disposition home or self-care (01) ==
PROVIDERS: PCP Family Medicine; Visit Provider Registered Nurse
DX: R10.9 Unspecified abdominal pain (principal)
CPT/HCPCS: 80053; 83690

== ENCOUNTER 2024-02-26 10:06 | Outpatient (CLI) | payer OTHER, SELFPAY ==
--- OUTSIDE RECORDS SUMMARY | 2024-02-26 10:10 | XMS_ITS | Clinical Summary ---
Author Organization [employer] [facility] [employer] [facility] Address [place], [place] [address] Care Team Providers Care Octave Board Racker Name Role Phone Uriah Ansari MD Primary [...] Allergic rhinitis due to pollen Inhale 1 [place] into both nostrils once daily. 1 Bottle 0 02/14/2015 Active cholecalciferol (VITAMIN D3) 2,000 unit capsuleIndications:Vi tamin D deficiency Take 1 capsule by mouth once daily. 0 04/28/2015 Active ranitidine (ZANTAC) 300 mg tabletIndications:Gas troesophageal reflux disease without esophagitis,Chronic superficial gastritis without bleeding Take 1 tablet by mouth at bedtime. 30 tablet 11 05/02/2016 Active albuterol HFA (PROAIR HFA) 90 mcg/actuation inhalerIndications:Ac [place] bronchospasm Inhale 2 Puffs by mouth 4 [...] fluticasone-salmetero l (ADVAIR HFA) 115-21 mcg/actuation inhalerIndications:Ac [place] bronchospasm Inhale 2 Puffs by mouth every [...] Father A Fib Heart Disease Maternal Grandfather [place] Cancer Maternal Grandmother brain t umor in 60s Good Health Mother Diabetes Paternal Grandfather also richardson d TN's Cancer-colon Paternal Grandmother Relation Name Status Comments [...] Procedure Name Priority Date/Time Associated Diagnosis Comments AUTOMOBILE BODY REPAIR SUPERVISOR THIN PREP PAP SCREEN IMAGED Routine 02/16/2021 1:00 PM CDT from Last 3 Months or Most Recently Relevant to Health Maintenance Results * AUTOMOBILE BODY REPAIR SUPERVISOR THIN PREP PAP SCREEN IMAGED (02/16/2021 1:00 PM CDT) Case Report Gynecologic Cytology Report ? Case: [id number] ? Authorizing Provider: ??Alda Rod MD ??Collected: ? 02/16/2021 1300 ? Ordering Location: ? [facility] ?Received: ?02/19/2021 0839 ? First Screen: ?Angela Olsen ? Specimen: ?AUTOMOBILE BODY REPAIR SUPERVISOR ThinPrep Vial Screening, Cervical/Vaginal ? 03/01/2021 3:05 PM CDT [facility] INTERPRETATION/ RESULT NEGATIVE FOR INTRAEPITHELIAL LESION OR MALIGNANCY (NIL) (none) 03/01/2021 3:05 PM CDT [facility] IMEN ADEQUACY Satisfactory for evaluation Endocervical component present 03/01/2021 3:05 PM CDT [facility] HPV REQUEST HPV and PAP 03/01/2021 3:05 PM CDT [facility] Date of LMP 01/29/2021 03/01/2021 3:05 PM CDT [facility] Last Pap Date 09/11/2016 03/01/2021 3:05 PM CDT [facility] Last Pap Result NIL 3:05 PM CDT [facility] Additional Information 03/01/2021 3:05 PM CDT [facility] Comment: Interpreted at [facility], [facility] Laboratory - [address], [place] [address] Automated Review Successful 03/01/2021 3:05 PM CDT [facility] Comment:Specimen processed s uccessfully by automated supervisor litharge device, ThinPrep Imaging System, [employer] ANCILLARY TESTING AUTOMOBILE BODY REPAIR SUPERVISOR HPV Ordered, Please see separate report 03/01/2021 3:05 PM CDT [facility] Note The pap test [...] and malignant lesions. 03/01/2021 3:05 PM CDT [facility] Other (Cervical/Vagina l) 02/16/2021 1:00 PM CDT 02/19/2021 8:39 AM CDT Alda Rod MD PATHOLOGY/[facility] [employer] LABORATORY-CENTRAL LABORATORY [address] [place] [address], [place] from Last 3 Months or Most Recently Relevant to Health Maintenance Care Teams Octave Board Racker Relationship Specialty Start Date End Date Uriah Ansari MD PCP - General 08/05/07
== END 2024-02-26 10:07 | disposition home or self-care (01) ==
PROVIDERS: PCP Family Medicine; Visit Provider Family Medicine
DX: R74.01 Elevation of levels of liver transaminase levels (principal); R73.03 Prediabetes; E66.01 Morbid (severe) obesity due to excess calories; E55.9 Vitamin D deficiency, unspecified; K59.00 Constipation, unspecified; R10.11 Right upper quadrant pain
CPT/HCPCS: 80053; 82728

== ENCOUNTER 2024-03-04 12:09 | Emergency (ER) | payer OTHER, SELFPAY ==
[2024-03-04 12:20] VITALS: BP 126/73; PULSE 69; RESP 20; TEMP 36.1; O2SAT 97; BMI 45.3
--- NOTE | 2024-03-04 12:42 | CRLHL7_ITS ---
For Patients: As a result of the Century Cures Act, medical imaging exams and procedure reports are released immediately into your electronic medical record. You may view this report before your referring provider. If you have questions, please contact your health care provider. INDICATION: Left lower quadrant pain. TECHNIQUE: CT abdomen and pelvis acquired with 100 cc Omnipaque 350 IV contrast. COMPARISON: None. FINDINGS: Lower chest: Unremarkable. Liver: Unremarkable. Normal in size and attenuation. No suspicious masses. Gallbladder and bile ducts: Unremarkable. No stones or inflammation. No biliary dilatation. Pancreas: Unremarkable. No mass or inflammation. Spleen: Unremarkable. Normal in size. No masses. Adrenal glands: Unremarkable. No nodules. Kidneys: Unremarkable. No suspicious masses, stones, or hydronephrosis. GI tract: Unremarkable. Normal in caliber. No sign of mass or inflammation. Normal appendix. Vasculature: Abdominal aorta is normal in caliber. Mesenteric arteries are patent. Lymph nodes: No lymphadenopathy. Peritoneum/Abdominal Wall: No ascites. No pneumoperitoneum. Rectus diastasis measuring 10 centimeters with fat and nonobstructed bowel loops herniating into the area of diastasis. Pelvis: Incompletely distended bladder. Normal uterus and ovaries. Bones: Unremarkable for age. IMPRESSION: No acute intra-abdominal or intrapelvic pathology. Please note that all CT scans at this facility use dose modulation, iterative reconstruction, and/or weight-based dosing when appropriate to reduce radiation dose to as low as reasonably achievable. Dictated by Caroline Carpio MD @ 03/04/2024 1:57:15 PM (Electronically Signed)
--- NOTE | 2024-03-04 12:43 | ED.ABDPAIN ---
HPI - Abdominal Pain General Chief Complaint: Abdominal Pain Stated Complaint: LUQ pain suddenly today Time Seen by Provider: 03/04/24 12:12 Source: patient Mode of arrival: ambulatory Limitations: no limitations History of Present Illness HPI narrative: Patient is a 43-year-old female presenting to the emergency department for left upper quadrant pain. She states this pain 1st started about 3 weeks ago while she was already trip. She has had a few episodes before that too. She is speaking to her primary care provider about is scheduled for an outpatient ultrasound. Has not had symptoms since that last occurrence 3 weeks ago. States the pain started suddenly and is this lateral the left and almost to the flank region. Was eating and drinking normally without issue. Has not taken anything for pain or nausea. Does states she has some nausea but no vomiting.. Denies pain anywhere else. No other abdominal or Gyne surgeries. Does have some issues with constipation and she does take stool softeners. Denies fevers, chills, chest pain, shortness of breath, lightheadedness, dizziness, diarrhea, constipation, weakness, numbness. No other concerns noted at this time. Related Data Home Medications ?Medication ?Instructions ?Recorded ?Confirmed cetirizine 10 mg tablet 10 mg PO DAILY 04/17/22 02/26/24 cholecalciferol (vitamin D3) 125 125 mcg PO DAILY 04/17/22 02/26/24 mcg (5,000 unit) tablet esomeprazole magnesium 20 mg 20 mg PO BID 04/17/22 02/26/24 capsule,delayed release fluticasone propionate 50 2 spray intranasal QDAY 02/13/23 02/26/24 mcg/actuation nasal spray,suspension (Flonase Allergy Relief) albuterol sulfate 2.5 mg/3 mL mg inhalation PRN 07/09/23 02/26/24 (0.083 %) solution for nebulization polyethylene glycol 3350 17 4 g PO QDAY 02/26/24 02/26/24 gram/dose oral powder (Miralax) Previous Rx's ?Medication ?Instructions ?Recorded albuterol sulfate 90 mcg/actuation 2 puff inhalation Q3-6H PRN 03/13/23 aerosol inhaler shortness of breath or wheezing #8.5 grams fluticasone 100 mcg-salmeterol 50 1 inh inhalation BID #60 ea 03/13/23 mcg/dose blistr powdr for inhalation bupropion HCl 150 mg 24 hr tablet, 150 mg PO DAILY #90 tabs 11/13/23 extended release escitalopram oxalate 20 mg tablet 20 mg PO QDAY #90 tabs 11/13/23 (Lexapro) epinephrine 0.3 mg/0.3 mL 0.3 ml IM ONCE PRN anaphylaxis #2 01/15/24 injection, auto-injector ea phentermine 37.5 mg tablet 37.5 mg PO QDAY #30 tabs 02/26/24 ondansetron 4 mg disintegrating 4 mg PO Q6H #20 tabs 03/04/24 tablet Allergies Allergy/AdvReac Type Severity Reaction Status Date / Time hazelnut Allergy Severe Verified 03/04/24 13:23 avocado Allergy Intermediate Numbness Verified 03/04/24 13:23 penicillin V Allergy Intermediate Rash Verified 03/04/24 13:23 nickel Allergy Mild Rash Verified 03/04/24 13:23 estrogens, conjugated AdvReac Intermediate dvt Verified 03/04/24 13:23 tree nuts Allergy Intermediate Numbness Uncoded 03/04/24 13:23 seasonal Allergy Unknown Sneezing Uncoded 03/04/24 13:23 Review of Systems Status of ROS Reports: 10 or more systems reviewed and unremarkable except as noted in History and below [facility] Medical History Obstructive sleep apnea treated with continuous positive airway pressure (CPAP) (2018) ?G47.33 - Obstructive sleep apnea (adult) (pediatric) (ICD-10) Prediabetes (10/2023) ?R73.03 - Prediabetes (ICD-10) Closed fracture of phalanx of left fifth toe ?S92.502A - Displaced unspecified fracture of left lesser toe(s), initial encounter for closed fracture (ICD-10) Mild persistent asthma ?J45.30 - Mild persistent asthma, uncomplicated (ICD-10) Pain in both knees ?M25.561 - Pain in right knee (ICD-10) ?M25.562 - Pain in left knee (ICD-10) Gastroesophageal reflux disease without esophagitis (11/07/15) ?K21.9 - Gastro-esophageal reflux disease without esophagitis (ICD-10) Depression ?F32.A - Depression, unspecified (ICD-10) Anxiety ?F41.9 - Anxiety disorder, unspecified (ICD-10) Acute deep vein thrombosis (DVT) of lower extremity (02/17/20) ?I82.409 - Acute embolism and thrombosis of unspecified deep veins of unspecified lower extremity (ICD-10) Surgical History History of carpal tunnel surgery of left wrist (05/19/19) ?Z98.890 - Other specified postprocedural states (ICD-10) History of carpal tunnel surgery of right wrist (05/09/15) ?Z98.890 - Other specified postprocedural states (ICD-10) Social History Narrative: , 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 Smoking Status: Former smoker Do you use any of these nicotine containing products: None Second hand tobacco smoke exposure: No How often do you have a drink containing alcohol: 2-4 times a month AUDIT-C Alcohol total score: 2 Non-prescribed substance use: marijuana (any form) Little interest or pleasure in doing things: not at all Feeling down, depressed, or hopeless: several days Exam Narrative: Exam Narrative: Const: Well-nourished, Well-developed, in mild distress Eyes: PERRL, no conjunctival injection, and symmetrical lids HENT: Atraumatic external nose and ears. Moist mucous membranes. Neck: Symmetric, trachea midline, No thyromegaly. CVS: RRR, No murmurs or gallops. Peripheral pulses 2+ and equal in all extremities RESP: Unlabored respiratory effort. Clear to auscultation bilaterally. GI: Left upper quadrant and left flank tenderness. Nondistended, No rebound or guarding. MSK:Extremities w/o deformity, Normal Active ROM Skin: Warm, Dry. No rashes or lesions. Neuro: Normal Muscle tone, No focal neurological deficits. Psych: Awake, Alert, & Oriented x3. Appropriate mood and affect. Const: Vital Signs, click to edit/add: Vital Signs - 24 hr 03/04/24 12:20 Temperature 96.9 F L Pulse Rate [Left P ulse Oximeter] 69 Respiratory Rate 20 Blood Pressure [Le ft Upper Arm] 126/73 Pulse Oximetry 97 Oxygen Delivery Me thod Room Air Course Vital Signs Vital signs: Initial Vital Signs Temperature 96.9 F L 03/04/24 12:20 Temperature Source Temporal Artery Scan 03/04/24 12:20 Pulse Rate 69 03/04/24 12:20 Pulse Rhythm Regular 03/04/24 12:20 Pulse Strength 3+ Normal 03/04/24 12:20 Respiratory Rate 20 03/04/24 12:20 Blood Pressure 126/73 03/04/24 12:20 Blood Pressure Mean 90 03/04/24 12:20 Blood Pressure Position Sitting 03/04/24 12:20 Pulse Oximetry 97 03/04/24 12:20 Oxygen Delivery Method Room Air 03/04/24 12:20 Vital Signs Temperature 96.9 F L 03/04/24 12:20 Pulse Rate 69 03/04/24 12:20 Respiratory Rate 20 03/04/24 12:20 Blood Pressure 126/73 03/04/24 12:20 Pulse Oximetry 97 03/04/24 12:20 Oxygen Delivery Method Room Air 03/04/24 12:20 Temperature 96.9 F L 03/04/24 12:20 Pulse Rate 69 03/04/24 12:20 Respiratory Rate 20 03/04/24 12:20 Blood Pressure 126/73 03/04/24 12:20 Pulse Oximetry 97 03/04/24 12:20 Oxygen Delivery Method Room Air 03/04/24 12:20 Medications Administered Medications: Discontinued Medications Generic Name Dose Route Start Last Admin Trade Name Freq PRN Reason Stop Dose Admin Ketorolac Tromethamine 15 mg 03/04/24 12:42 03/04/24 12:57 Ketorolac 15 Mg/Ml Inj IVP 03/04/24 12:43 15 mg ONCE ONE Administration Ondansetron HCl 4 mg 03/04/24 12:42 03/04/24 12:56 Ondansetron 2 Mg/Ml Inj IVP 03/04/24 12:43 4 mg ONCE ONE Administration MDM - Abdominal Pain MDM Narrative Medical decision making narrative: Patient is a 43-year-old female presenting for left upper quadrant/left flank pain. Will do a CT scan to look for abnormalities of the spleen or kidney. SBO seems unlikely as she has no previous injuries. Also check a lipase to look for signs of pancreatitis. Will give Toradol for pain and Zofran for nausea. CBC, CMP, urinalysis, urinary test also ordered. Patient's symptoms somewhat improved with the Toradol and Zofran. Lab work shows no concerning findings. She is brought to CT scanner before her urine test done but does not show any concerning abnormalities. She is otherwise doing well at this time. I not sure was causing symptoms her she is not appear to have any emergent issues in can follow-up outpatient. She is agreeable to this plan. Will discharge her with Zofran. Lab Data Labs: Lab Results 03/04/24 Range/Units 12:55 WBC 8.46 (4.50-11.00) K/uL RBC 4.64 (4.00-5.20) m/uL Hgb 12.5 (12.0-16.0) gm/dL Hct 39.5 (33.0-51.0) % MCV 85 (80-100) fL MCH 27 (26-34) pg MCHC 32 (32-36) gm/dL RDW Coeff of Sujatha 15.2 (11.5-15.5) % Plt Count 241 (140-440) K/uL Neut % (Auto) 74.6 H (42.0-72.0) % Lymph % (Auto) 14.3 L (20-44) % [place] % (Auto) 7.8 (0.0-11.0) % Eos % (Auto) 2.8 (0.0-7.0) % Baso % (Auto) 0.4 (0.0-3.0) % Neut # (Auto) 6.30 (1.7-7.0) K/uL Lymph # (Auto) 1.20 (0.90-2.90) K/uL [place] # (Auto) 0.70 (0.00-0.90) K/UL Eos # (Auto) 0.24 (0.00-0.50) K/uL Baso # (Auto) 0.03 (0.00-0.30) K/uL Abs Immat Gran (auto) 0.01 (0.00-0.30) K/uL Imm/Tot Granulo (auto) 0.1 % Sodium 138 (135-149) mmol/L Potassium 4.0 (3.6-5.1) mmol/L Chloride 105 (96-114) mmol/L Carbon Dioxide 25 (20-32) mmol/L Anion Gap 8 (7-15) mEq/L BUN 15 (5-24) mg/dL Creatinine 0.8 (0.5-1.5) mg/dL Estimated Creat Clear 89.99 Estimated GFR 95 ml/min Glucose 93 (60-115) mg/dL Calcium 9.3 (8.4-10.6) mg/dL Total Bilirubin 0.9 (0.1-1.5) mg/dL AST 51 H (12-35) U/L ALT 31 (4-35) U/L Alkaline Phosphatase 79 (40-150) U/L Total Protein 7.5 (6.0-8.3) g/dL Albumin 4.5 (3.3-5.0) g/dL Lipase 39 (23-300) U/L Imaging Data CT scan abdomen and pelvis: Attestation: I have reviewed the pertinent imaging results. Radiologist's impression: No acute intra-abdominal or intrapelvic pathology. Please note that all CT scans at this facility use dose modulation, iterative reconstruction, and/or weight-based dosing when appropriate to reduce radiation dose to as low as reasonably achievable. Dictated by Caroline Carpio MD @ 03/04/2024 1:57:15 PM Discharge Plan Discharge Clinical Impression: Abdominal pain Qualifiers: Abdominal location: left upper quadrant Qualified Code(s): R10.12 - Left upper quadrant pain Patient Disposition: Home, Self-Care Condition: Improved Instructions: Abdominal Pain (ED) Additional Instructions: No emergent issues were seen on your lab work or imaging. I recommend you follow-up with primary care provider for these symptoms. Zofran was prescribed. Return for new or worsening symptom Prescriptions: New ondansetron 4 mg tablet,disintegrating 4 mg PO Q6H Qty: 20 0RF No Action cholecalciferol (vitamin D3) 125 mcg (5,000 unit) tablet 125 mcg PO DAILY esomeprazole magnesium 20 mg capsule,delayed release(DR/EC) 20 mg PO BID cetirizine 10 mg tablet 10 mg PO DAILY albuterol sulfate 2.5 mg /3 mL (0.083 %) solution for nebulization inhalation PRN escitalopram oxalate [Lexapro] 20 mg tablet 20 mg PO QDAY Qty: 90 3RF bupropion HCl 150 mg tablet extended release 24 hr 150 mg PO DAILY Qty: 90 3RF polyethylene glycol 3350 [Miralax] 17 gram/dose powder 4 g PO QDAY phentermine 37.5 mg tablet 37.5 mg PO QDAY Qty: 30 2RF fluticasone propionate [Flonase Allergy Relief] 50 mcg/actuation spray,suspension 2 spray intranasal QDAY Rx Instructions: administer into each nostril fluticasone propion-salmeterol 100-50 mcg/dose blister with device 1 inh inhalation BID Qty: 60 12RF albuterol sulfate 90 mcg/actuation HFA aerosol inhaler 2 puff inhalation Q3-6H PRN (Reason: shortness of breath or wheezing) Qty: 8.5 4RF epinephrine 0.3 mg/0.3 mL auto-injector 0.3 ml IM ONCE PRN (Reason: anaphylaxis) Qty: 2 0RF Follow Up/Referrals: Alda Rod MD [Primary Care Provider] - Stand Alone Forms: [facility], [facility] Info Instructions
[2024-03-04] MEDS: ONDANSETRON 2 MG/ML inj 4 MG IVP (12:56)
[2024-03-04] MEDS: KETOROLAC 15 MG/ML inj IVP (12:57)
--- OUTSIDE RECORDS SUMMARY | 2024-03-04 12:57 | XMS_ITS | Clinical Summary ---
Author Organization [employer] [facility] Address [place], [place] [address] Care Team Providers Care Press Feeder Broomcorn Name Role Phone Uriah Ansari MD Primary [...] Allergic rhinitis due to pollen Inhale 1 [place] into both nostrils once daily. 1 Bottle 0 02/14/2015 Active cholecalciferol (VITAMIN D3) 2,000 unit capsuleIndications:Vi tamin D deficiency Take 1 capsule by mouth once daily. 0 04/28/2015 Active ranitidine (ZANTAC) 300 mg tabletIndications:Gas troesophageal reflux disease without esophagitis,Chronic superficial gastritis without bleeding Take 1 tablet by mouth at bedtime. 30 tablet 11 05/02/2016 Active albuterol HFA (PROAIR HFA) 90 mcg/actuation inhalerIndications:[place] bronchospasm Inhale 2 Puffs by mouth 4 [...] fluticasone-salmetero l (ADVAIR HFA) 115-21 mcg/actuation inhalerIndications:[place] bronchospasm Inhale 2 Puffs by mouth every [...] Father A Fib Heart Disease Maternal Grandfather [place] Cancer Maternal Grandmother brain t umor in 60s Good Health Mother Diabetes Paternal Grandfather also richardson d [place]'s Cancer-colon Paternal Grandmother Relation Name Status Comments [...] Procedure Name Priority Date/Time Associated Diagnosis Comments FLOOR SERVICE WORKER SPRING THIN PREP PAP SCREEN IMAGED Routine 02/16/2021 1:00 PM CDT from Last 3 Months or Most Recently Relevant to Health Maintenance Results * FLOOR SERVICE WORKER SPRING THIN PREP PAP SCREEN IMAGED (02/16/2021 1:00 PM CDT) Case Report Gynecologic Cytology Report ? Case: [id number] ? Authorizing Provider: ??Alda Rod MD ??Collected: ? 02/16/2021 1300 ? Ordering Location: ? [facility] CEN[facility]AL [facility] ?Received: ?02/19/2021 0839 ? First Screen: ?Angela Olsen ? Specimen: ?FLOOR SERVICE WORKER SPRING ThinPrep Vial Screening, Cervical/Vaginal ? 03/01/2021 3:05 PM CDT [facility] INTERPRETATION/ RESULT NEGATIVE FOR INTRAEPITHELIAL LESION OR MALIGNANCY (NIL) (none) 03/01/2021 3:05 PM CDT [facility] IMEN ADEQUACY Satisfactory for evaluation Endocervical component present 03/01/2021 3:05 PM CDT [facility] HPV REQUEST HPV and PAP 03/01/2021 3:05 PM CDT [facility] Date of LMP 01/29/2021 03/01/2021 3:05 PM CDT [facility] Last Pap Date 09/11/2016 03/01/2021 3:05 PM CDT [facility] Last Pap Result NIL 3:05 PM CDT [facility] Additional Information 03/01/2021 3:05 PM CDT [facility] Comment: Interpreted at [facility], Central Laboratory - [address], [place] [address] Automated Review Successful 03/01/2021 3:05 PM CDT [facility] Comment:Specimen processed s uccessfully by automated obstetric anaesthetist device, ThinPrep Imaging System, [employer] ANCILLARY TESTING FLOOR SERVICE WORKER SPRING HPV Ordered, Please see separate report 03/01/2021 3:05 PM CDT [facility] Note The pap test [...] and malignant lesions. 03/01/2021 3:05 PM CDT [facility] Other (Cervical/Vagina l) 02/16/2021 1:00 PM CDT 02/19/2021 8:39 AM CDT Alda Rod MD PATHOLOGY/CYTOLO GY [facility] LABORATORY-CENTRAL LABORATORY [address] [place] [address], [place] from Last 3 Months or Most Recently Relevant to Health Maintenance Care Teams Press Feeder Broomcorn Relationship Specialty Start Date End Date Uriah Ansari MD PCP - General 08/05/07
[2024-03-04 13:05] LABS: Basophils Absolute Auto 0.03 K/uL (0.00-0.30); Basophils Percent Auto 0.4 % (0.0-3.0); Eosinophils Absolute Auto 0.24 K/uL (0.00-0.50); Eosinophils Percent Auto 2.8 % (0.0-7.0); Hematocrit 39.5 % (33.0-51.0); Hemoglobin* 12.5 gm/dL (12.0-16.0); Immature Granulocytes Abs Auto 0.01 K/uL (0.00-0.30); Immature Granulocytes Pct Auto 0.1 %; Lymphocytes Percent Auto 14.3 % (20-44); Mean Corpuscular HGB Conc 32 gm/dL (32-36); Mean Corpuscular Hemoglobin 27 pg (26-34); Mean Corpuscular Volume 85 fL (80-100); Monocytes Percent Auto 7.8 % (0.0-11.0); Neutrophils Percent Auto 74.6 % (42.0-72.0); Platelet Count* 241 K/uL (140-440); RDW Coefficient of Variation % 15.2 % (11.5-15.5); Red Blood Count 4.64 m/uL (4.00-5.20); White Blood Count* 8.46 K/uL (4.50-11.00)
[2024-03-04 13:06] LABS: Slide Review Reflex No
[2024-03-04 13:22] LABS: Albumin* 4.5 g/dL (3.3-5.0)
[2024-03-04 13:23] LABS: Chloride* 105 mmol/L (96-114); Sodium* 138 mmol/L (135-149)
[2024-03-04 13:25] LABS: Alkaline Phosphatase* 79 U/L (40-150); Anion Gap 8 mEq/L (7-15); Aspartate Amino Transferase* 51 U/L (12-35); Bilirubin Total* 0.9 mg/dL (0.1-1.5); Blood Urea Nitrogen* 15 mg/dL (5-24); Carbon Dioxide* 25 mmol/L (20-32); Creatinine* 0.8 mg/dL (0.5-1.5); Est. Creatinine Clearance* 89.99; Estimated Glomerular Filt Rate 95 ml/min; Glucose* 93 mg/dL (60-115); Lipase* 39 U/L (23-300); Total Protein* 7.5 g/dL (6.0-8.3)
[2024-03-04 13:26] LABS: Alanine Aminotransferase* 31 U/L (4-35); Calcium* 9.3 mg/dL (8.4-10.6)
== END 2024-03-04 14:40 | disposition home or self-care (01) ==
PROVIDERS: Emergency Provider Student in an Organized Health Care Education/Training Program; PCP Family Medicine
DX: R10.12 Left upper quadrant pain (principal)
CPT/HCPCS: 36415; 74177; 80053; 81001; 81025; 83690; 85025; 96374; 96375; 99283; 99284; J1885; J2405; Q9967

== ENCOUNTER 2024-03-05 07:07 | Outpatient (CLI) | payer OTHER, SELFPAY ==
--- OUTSIDE RECORDS SUMMARY | 2024-03-05 07:09 | XMS_ITS | Clinical Summary ---
Author Organization [employer] [facility] Address [place], [place] [address] Care Team Providers Care Furnace Mechanic Helper Name Role Phone Uriah Ansari MD Primary [...] Allergic rhinitis due to pollen Inhale 1 [place] into both nostrils once daily. 1 Bottle 0 02/14/2015 Active cholecalciferol (VITAMIN D3) 2,000 unit capsuleIndications:Vi tamin D deficiency Take 1 capsule by mouth once daily. 0 04/28/2015 Active ranitidine (ZANTAC) 300 mg tabletIndications:Gas troesophageal reflux disease without esophagitis,Chronic superficial gastritis without bleeding Take 1 tablet by mouth at bedtime. 30 tablet 11 05/02/2016 Active albuterol HFA (PROAIR HFA) 90 mcg/actuation inhalerIndications:[place] bronchospasm Inhale 2 Puffs by mouth 4 [...] fluticasone-salmetero l (ADVAIR HFA) 115-21 mcg/actuation inhalerIndications:[place] bronchospasm Inhale 2 Puffs by mouth every [...] Father A Fib Heart Disease Maternal Grandfather [place] Cancer Maternal Grandmother brain t umor in 60s Good Health Mother Diabetes Paternal Grandfather also richardson d [place]'s Cancer-colon Paternal Grandmother Relation Name Status Comments [...] Procedure Name Priority Date/Time Associated Diagnosis Comments WAXER FLOOR THIN PREP PAP SCREEN IMAGED Routine 02/16/2021 1:00 PM CDT from Last 3 Months or Most Recently Relevant to Health Maintenance Results * WAXER FLOOR THIN PREP PAP SCREEN IMAGED (02/16/2021 1:00 PM CDT) Case Report Gynecologic Cytology Report ? Case: [id number] ? Authorizing Provider: ??Alda Rod MD ??Collected: ? 02/16/2021 1300 ? Ordering Location: ? [facility]EN[facility] ?Received: ?02/19/2021 0839 ? First Screen: ?Angela Olsen ? Specimen: ?[place] FLOOR ThinPrep Vial Screening, Cervical/Vaginal ? 03/01/2021 3:05 PM CDT [facility] INTERPRETATION/ RESULT NEGATIVE FOR INTRAEPITHELIAL LESION OR MALIGNANCY (NIL) (none) 03/01/2021 3:05 PM CDT [facility] IMEN ADEQUACY Satisfactory for evaluation Endocervical component present 03/01/2021 3:05 PM CDT [facility] HPV REQUEST HPV and PAP 03/01/2021 3:05 PM CDT [facility] Date of LMP 01/29/2021 03/01/2021 3:05 PM CDT [facility] Last Pap Date 09/11/2016 03/01/2021 3:05 PM CDT [facility] Last Pap Result NIL 3:05 PM CDT [facility] Additional Information 03/01/2021 3:05 PM CDT [facility] Comment: Interpreted at [facility], Central Laboratory - [address], [place] [address] Automated Review Successful 03/01/2021 3:05 PM CDT [facility] Comment:Specimen processed s uccessfully by automated business management manager device, ThinPrep Imaging System, [employer] ANCILLARY TESTING WAXER FLOOR HPV Ordered, Please see separate report 03/01/2021 3:05 PM CDT [facility] EN[facility] LABORATORY Note The pap test [...] and malignant lesions. 03/01/2021 3:05 PM CDT [facility] Other (Cervical/Vagina l) 02/16/2021 1:00 PM CDT 02/19/2021 8:39 AM CDT Alda Rod MD PATHOLOGY/CYTOLO GY [facility] LABORATORY-CENTRAL LABORATORY [address] [place] [address], [place] from Last 3 Months or Most Recently Relevant to Health Maintenance Care Teams Furnace Mechanic Helper Relationship Specialty Start Date End Date Uriah Ansari MD PCP - General 08/05/07
--- NOTE | 2024-03-05 07:15 | CRLHL7_ITS ---
For Patients: As a result of the Century Cures Act, medical imaging exams and procedure reports are released immediately into your electronic medical record. You may view this report before your referring provider. If you have questions, please contact your health care provider. INDICATION: Right upper quadrant pain COMPARISON: CT 10/25/2023 TECHNIQUE: Real time hutchinson scale imaging and color Doppler analysis was performed of the gallbladder. FINDINGS: Gallbladder wall measures 3.4 millimeters. Floating echogenic foci within the gallbladder lumen. No pericholecystic fluid. Common bile duct measures 4.6 millimeters. IMPRESSION: Small cholesterol stones in the gallbladder consistent with cholelithiasis. Dictated by Rudy Rios MD @ 03/05/2024 10:26:00 AM (Electronically Signed)
== END 2024-03-05 07:08 | disposition home or self-care (01) ==
LOC: US 07:07
PROVIDERS: PCP Family Medicine; Visit Provider Family Medicine
DX: R10.11 Right upper quadrant pain (principal); K80.20 Calculus of gallbladder without cholecystitis without obstruction
CPT/HCPCS: 76705

== ENCOUNTER 2024-03-11 11:25 | Outpatient (CLI) | payer OTHER, SELFPAY ==
--- OUTSIDE RECORDS SUMMARY | 2024-03-11 11:27 | XMS_ITS | Clinical Summary ---
Author Organization [employer] [facility] Address [place], [place] [address] Care Team Providers Care Spring Fitter Name Role Phone Uriah Ansari MD Primary [...] Allergic rhinitis due to pollen Inhale 1 [place] into both nostrils once daily. 1 Bottle [...] Father A Fib Heart Disease Maternal Grandfather [place] Cancer Maternal Grandmother brain t umor in 60s Good Health Mother Diabetes Paternal Grandfather also richardson d [place]'s Cancer-colon Paternal Grandmother Relation Name Status Comments [...] Procedure Name Priority Date/Time Associated Diagnosis Comments HIRED WORKER THIN PREP PAP SCREEN IMAGED Routine 02/16/2021 1:00 PM CDT from Last 3 Months or Most Recently Relevant to Health Maintenance Results * HIRED WORKER THIN PREP PAP SCREEN IMAGED (02/16/2021 1:00 PM CDT) Case Report Gynecologic Cytology Report ? Case: [id number] ? Authorizing Provider: ??Alda Rod MD ??Collected: ? 02/16/2021 1300 ? Ordering Location: ? [facility] CENTRAL [facility] ?Received: ?02/19/2021 0839 ? First Screen: ?Angela Olsen ? Specimen: ?HIRED WORKER ThinPrep Vial Screening, Cervical/Vaginal ? 03/01/2021 3:05 PM CDT [facility] INTERPRETATION/ RESULT NEGATIVE FOR INTRAEPITHELIAL LESION OR MALIGNANCY (NIL) (none) 03/01/2021 3:05 PM CDT [facility] IMEN ADEQUACY Satisfactory for evaluation Endocervical component present 03/01/2021 3:05 PM CDT [facility] HPV REQUEST HPV and PAP 03/01/2021 3:05 PM CDT [facility] Date of LMP 01/29/2021 03/01/2021 3:05 PM CDT [facility] Last Pap Date 09/11/2016 03/01/2021 3:05 PM CDT [facility] Last Pap Result NIL 3:05 PM CDT [facility] Additional Information 03/01/2021 3:05 PM CDT [facility] Comment: Interpreted at [facility], Central Laboratory - [address], [place] [address] Automated Review Successful 03/01/2021 3:05 PM CDT [facility] Comment:Specimen processed s uccessfully by automated tape maker device, ThinPrep Imaging System, [employer] ANCILLARY TESTING HIRED WORKER HPV Ordered, Please see separate report 03/01/2021 3:05 PM CDT [facility] Note The pap test [...] and malignant lesions. 03/01/2021 3:05 PM CDT [facility] Other (Cervical/Vagina l) 02/16/2021 1:00 PM CDT 02/19/2021 8:39 AM CDT Alda Rod MD PATHOLOGY/[facility] LABORATORY-CENTRAL LABORATORY [address] [place] [address], [place] from Last 3 Months or Most Recently Relevant to Health Maintenance Care Teams Spring Fitter Relationship Specialty Start Date End Date Uriah Ansari MD PCP - General 08/05/07
--- NOTE | 2024-03-11 11:30 | CRLHL7_ITS ---
For Patients: As a result of the Century Cures Act, medical imaging exams and procedure reports are released immediately into your electronic medical record. You may view this report before your referring provider. If you have questions, please contact your health care provider. Indication: Abdominal pain Technique: Nuclear medicine hepatobiliary scan with gallbladder ejection fraction after the intravenous administration of 5.4 millicuries technetium 99 M Mebrofenin and 2.6 micrograms of CCK. Comparison: Abdominal ultrasound 03/05/2024 Findings: Normal hepatic extraction and excretion of the radiopharmaceutical with prompt appearance of the common bile duct followed by the small-bowel and then the gallbladder. There is no enterogastric reflux. Visually decreased gallbladder contraction is identified. Calculated gallbladder ejection fraction is 10 percent. Impression: Gallbladder dysfunction. Dictated by Thierno Villaseñor MD @ 03/11/2024 2:15:06 PM (Electronically Signed)
== END 2024-03-11 11:26 | disposition home or self-care (01) ==
LOC: NM 11:26
PROVIDERS: PCP Family Medicine; Visit Provider Surgery
DX: R10.12 Left upper quadrant pain (principal); K82.9 Disease of gallbladder, unspecified
CPT/HCPCS: 78227; A9537; J2805

== ENCOUNTER 2024-03-22 09:05 | Day surgery (SDC) | payer OTHER, SELFPAY ==
[2024-03-22] VITALS (13 sets, daily range): BP systolic 101–127; BP diastolic 60–96; PULSE 55–85; RESP 16–20; TEMP 36.2–36.8; O2SAT 94–98; BMI 43.7
--- OUTSIDE RECORDS SUMMARY | 2024-03-22 09:07 | XMS_ITS | Clinical Summary ---
Author Organization [employer] [facility] Address [place], [place] [address] Care Team Providers Care Opener Name Role Phone Uriah Ansari MD Primary [...] Allergic rhinitis due to pollen Inhale 1 [place] into both nostrils once daily. 1 Bottle [...] Father A Fib Heart Disease Maternal Grandfather [place] Cancer Maternal Grandmother brain t umor in 60s Good Health Mother Diabetes Paternal Grandfather also richardson d PR's Cancer-colon Paternal Grandmother Relation Name Status Comments [...] Procedure Name Priority Date/Time Associated Diagnosis Comments ASBESTOS REMOVAL SUPERVISOR THIN PREP PAP SCREEN IMAGED Routine 02/16/2021 1:00 PM CDT from Last 3 Months or Most Recently Relevant to Health Maintenance Results * ASBESTOS REMOVAL SUPERVISOR THIN PREP PAP SCREEN IMAGED (02/16/2021 1:00 PM CDT) Case Report Gynecologic Cytology Report ? Case: [id number] ? Authorizing Provider: ??Alda Rod MD ??Collected: ? 02/16/2021 1300 ? Ordering Location: ? [facility] CENTRAL LAB ?Received: ?02/19/2021 0839 ? First Screen: ?Angela Olsen ? Specimen: ?ASBESTOS REMOVAL SUPERVISOR ThinPrep Vial Screening, Cervical/Vaginal ? 03/01/2021 3:05 PM CDT [facility] INTERPRETATION/ RESULT NEGATIVE FOR INTRAEPITHELIAL LESION OR MALIGNANCY (NIL) (none) 03/01/2021 3:05 PM CDT [facility] IMEN ADEQUACY Satisfactory for evaluation Endocervical component present 03/01/2021 3:05 PM CDT [facility] HPV REQUEST HPV and PAP 03/01/2021 3:05 PM CDT [facility] Date of LMP 01/29/2021 03/01/2021 3:05 PM CDT [facility] Last Pap Date 09/11/2016 03/01/2021 3:05 PM CDT [facility] Last Pap Result NIL 3:05 PM CDT [facility] Additional Information 03/01/2021 3:05 PM CDT [facility] Comment: Interpreted at [facility], Central Laboratory - [address], [place] [address] Automated Review Successful 03/01/2021 3:05 PM CDT [facility] Comment:Specimen processed s uccessfully by automated purse framer device, ThinPrep Imaging System, [employer] ANCILLARY TESTING ASBESTOS REMOVAL SUPERVISOR HPV Ordered, Please see separate report 03/01/2021 3:05 PM CDT [facility] Note The pap test [...] and malignant lesions. 03/01/2021 3:05 PM CDT [facility] Other (Cervical/Vagina l) 02/16/2021 1:00 PM CDT 02/19/2021 8:39 AM CDT Alda Rod MD PATHOLOGY/CY[facility]OLO [facility]Y [facility] [employer] LABORATORY-CENTRAL LABORATORY [address] [place] [address], [place] from Last 3 Months or Most Recently Relevant to Health Maintenance Care Teams Opener Relationship Specialty Start Date End Date Uriah Ansari MD PCP - General 08/05/07
--- NOTE | 2024-03-22 09:29 | W.PM.H&PU ---
History & Physical Update History & Physical Update H&P Reviewed and patient assessed: No changes noted
[2024-03-22] MEDS: SODIUM CHLORIDE 0.9 % (FLUSH) 10 ML SYRINGE IVF (09:30)
[2024-03-22] MEDS: LACTATED RINGERS 1000 ML 1,000 ML 100 ML IV ×2 (09:32→10:04)
[2024-03-22 09:33] LABS: Ur HCG Qualitative* Negative (Negative)
[2024-03-22] MEDS: CLINDAMYCIN 900 MG/50 ML-D5W IVPB (09:57)
--- NOTE | 2024-03-22 10:05 | W.ANESCHARGE ---
Anesthesia Charges Start Date/Time Anesthesia Start Date: 03/22/24 Anesthesia Start Time: 09:47 Stop Date/Time Anesthesia Stop Date: 03/22/24 Anesthesia Stop Time: 10:40
[2024-03-22] MEDS: BUPIVACAINE 0.25% 30 ML INJECTION (10:10)
--- NOTE | 2024-03-22 10:41 | P.GSOP_ITS ---
Operative Note Date of procedure: 03/22/24 Pre-op diagnosis: Presumed biliary colic Post-op diagnosis: Same Type of Procedure: Laparoscopic cholecystectomy Indications: The patient is a 43-year-old female who developed upper abdominal pain, nausea and bloating. Workup showed a small amount of sludge in the gallbladder. She was also having pain on the left and had a history of gastritis, therefore HIDA scan was obtained. This showed an ejection fraction of 10%. We discussed cholecystectomy and she wished to proceed. Procedure Description: After discussing the risks and benefits of the procedure, the patient signed informed consent.? The operative site was marked and the patient was brought to the operating room and placed on the operating table in supine position.? Care was taken to pad the patient's pressure points.?? The patient was then intubated by anesthesia.?? The operative site was then prepped and draped in the usual sterile fashion.? A time-out was then performed. Entrance to the abdomen was gained via a 5 mm Visiport in the left upper quadrant. The abdomen was insufflated and briefly surveyed for signs of injury. There was none. A 10 mm port was placed in the mid upper abdomen as well as 2 working ports along the right costal margin, all under direct vision. The patient was then placed in reverse Trendelenburg position with the right side up. The gallbladder fundus was grasped and retracted cephalad. The infundibulum was grasped. A combination of hook cautery and blunt dissection was used to carefully dissect out the cystic duct and artery until they could clearly be seen entering the gallbladder without any intervening structures. The gallbladder was dissected off the cystic plate to achieve the critical view. Once this was achieved the cystic duct and artery were each clipped with 2 clips proximally and 1 clip distally and transected with the scissors. The gallbladder was then taken off of the liver bed and removed from the abdomen using an Endo- Catch bag. The gallbladder bed was surveyed for hemostasis which appeared adequate. The umbilical port fascia was closed with 0 Vicryl using a Raza- Evie device. Local anesthetic was injected into the skin and subcutaneous tissue as well as fascia around the port sites. The remaining ports were then removed and the abdomen desufflated. The skin was closed with absorbable subcuticular suture. Sterile dressings were then applied. Instrument sponge and needle counts were correct at the end of the case. The patient was then woken and transferred to the PACU in stable condition. ? The patient tolerated the procedure well. Findings: None Anesthesia: GETA Surgeon: Kristen Parkinson MD Estimated blood loss (mL): 5 Specimen: Gallbladder Condition: stable Disposition: PACU
--- NOTE | 2024-03-22 11:04 | W.ANESCHARGE ---
Anesthesia Charges Start Date/Time Anesthesia Start Date: 03/22/24 Anesthesia Start Time: 09:47 Stop Date/Time Anesthesia Stop Date: 03/22/24 Anesthesia Stop Time: 10:40
[2024-03-22] MEDS: ONDANSETRON 2 MG/ML inj 4 MG IVP (11:09)
[2024-03-22] MEDS: HYDROCODONE-ACETAMIN 5-325 MG 1 TAB PO (11:25)
[2024-03-22] MEDS: KETOROLAC 15 MG/ML inj IVP (11:25)
[2024-03-22] MEDS: fentaNYL 100 MCG/2 ML inj 50 MCG IVP (11:26)
== END 2024-03-22 12:41 | disposition home or self-care (01) ==
PROVIDERS: PCP Family Medicine; Visit Provider Surgery
PROC: 0FT44ZZ Resection of Gallbladder, Percutaneous Endoscopic Approach (ICD-10-PCS; CPT 47562; principal; 2024-03-22 10:15)
DX: K80.20 Calculus of gallbladder without cholecystitis without obstruction (principal)
CPT/HCPCS: 47562; 00790; 81025; 88304; A9270; J0330; J0665; J0736; J1100; J1885; J2250; J2405; J2704; J2710; J3010; J3490; J7120

== ENCOUNTER 2024-10-19 14:13 | Outpatient (CLI) | payer OTHER, SELFPAY ==
--- NOTE | 2024-10-19 14:40 | CRLHL7_ITS ---
For Patients: As a result of the Century Cures Act, medical imaging exams and procedure reports are released immediately into your electronic medical record. You may view this report before your referring provider. If you have questions, please contact your health care provider. BILATERAL SCREENING MAMMOGRAM WITH COMPUTER-AIDED DETECTION AND TOMOSYNTHESIS TECHNIQUE: CC and MLO views were obtained. These mammographic images have been obtained using full-field digital technique. These mammographic images were interpreted with the benefit of computer-aided detection. Breast Tomosynthesis was used in this interpretation. COMPARISON FILM: 10/07/23, 09/30/22. FINDINGS: The breasts are almost entirely fatty. IMPRESSION: There is no radiographic evidence for malignancy. ASSESSMENT: BI-RADS Category 2: Benign RECOMMENDATION: Routine screening mammogram in 1 year. A lay language report of this examination will be provided to the patient. Rudy Rios M.D. Diagnostic Radiologist [facility] [email or web address] SP/Dictated by: Rudy Rios MD @ 10/26/2024 11:07:00 AM (Electronically Signed)
== END 2024-10-19 14:14 | disposition home or self-care (01) ==
LOC: MAMMO 14:14
PROVIDERS: PCP Registered Nurse; Visit Provider Registered Nurse
DX: Z12.31 Encounter for screening mammogram for malignant neoplasm of breast (principal)
CPT/HCPCS: 77063; 77067

== ENCOUNTER 2024-10-28 14:10 | Outpatient (CLI) | payer OTHER, SELFPAY | END 2024-10-28 14:11 | disposition home or self-care (01) | LOC: NFLDREF 11-03 03:46 | PROVIDERS: PCP Registered Nurse; Referring Provider Registered Nurse; Visit Provider Obstetrics & Gynecology | DX: N39.3 Stress incontinence (female) (male) (principal) | CPT/HCPCS: 87086 ==

== ENCOUNTER 2024-11-11 09:00 | Outpatient (RCR) | payer OTHER, SELFPAY | END 2025-03-11 23:59 | disposition home or self-care (01) | PROVIDERS: PCP Family Medicine; Visit Provider Registered Nurse | DX: M62.89 Other specified disorders of muscle (principal); Z51.89 Encounter for other specified aftercare | CPT/HCPCS: 97110; 97112; 97140; 97162; 97530; 97535 ==

== ENCOUNTER 2025-03-24 04:11 | Emergency (ER) | payer OTHER, SELFPAY ==
--- OUTSIDE RECORDS SUMMARY | 2025-03-24 04:14 | XMS_ITS | Clinical Summary ---
Author Organization [employer] [facility] Address [address] [place] [id number] Care Team Providers Care Outside Salesman Name Role Phone Pcp, No Primary Care Provider Unavailabl e Allergies Active Allergy Reactions Criticality Noted Date Comments Unlisted Allergen (Include Detail In Comments) Metal Penicillins Rash Tolerated Augmentin after rash with amoxicillin Medications multivitamin (MVI) tablet Take 1 tablet by mouth once daily. 0 3 Active calcium with vitamin D3 (CALCIUM 500+D) tablet Take 2-4 tablets by mouth once daily. 0 3 Active fluticasone (50 mcg per actuation) nasal solution (FLONASE)Indicati ons:Allergic rhinitis due to pollen Inhale 1 Leonardo into both nostrils once daily. 1 Bottle 0 5 Active cholecalciferol (VITAMIN D3) 2,000 unit capsuleIndication s:Vitamin D deficiency Take 1 capsule by mouth once daily. 0 5 Active ranitidine (ZANTAC) 300 mg tabletIndications :Gastroesophageal reflux disease without esophagitis,Chron ic superficial gastritis without bleeding Take 1 tablet by mouth at bedtime. 30 tablet 11 6 Active albuterol HFA (PROAIR HFA) 90 mcg/actuation inhalerIndication s:Acute bronchospasm Inhale 2 Puffs by mouth 4 times daily if needed. 1 Inhaler 3 7 Active sucralfate (CARAFATE) 1 gram tabletIndications :Chronic superficial gastritis without bleeding,Gastroes ophageal reflux disease without esophagitis Take 1 tablet by mouth 4 times daily before meals and at bedtime. 120 tablet 5 7 Active lansoprazole (PREVACID) 30 mg capsuleIndication s:Gastroesophagea l reflux disease without esophagitis,Chron ic superficial gastritis without bleeding Take 1 capsule by mouth 2 times daily before meals. 60 capsule 11 7 Active scopolamine 1.5mg (TRANSDERM SCOP) 1.5 mg (1 mg over 3 days) patchIndications: H/O motion sickness Apply 1 Patch on dry, clean, hairless skin every 72 hours. 2 Patch 1 7 Active fluticasone-salme terol (ADVAIR HFA) 115-21 mcg/actuation inhalerIndication s:Acute bronchospasm Inhale 2 Puffs by mouth every 12 hours. 12 g 11 7 Active Active Problems Problem Noted Date Diagnosed Date Chronic superficial gastritis without bleeding 1 Gastroesophageal reflux disease without esophagi tis 11/07/2015 Overview (03/19/2017): EGD 10/2015 normal EGD 02/2017 normal, try Low Fodmap diet Vitamin D deficiency 04/28/2015 Acute bronchospasm 10/20/2009 Allergic rhinitis due to pollen Immunizations Immunization Administration Dates Next Due Influenza, IIV4 04/29/2016 Td (Age >=7 Years) 11/25/2004 Tdap 01/02/2012 Family History Medical History Relation Name Comments Arthritis Father Diabetes Father b 1947 Heart Disease Father A Fib Heart Disease Maternal Grandfather NH Cancer Maternal Grandmother brain t umor in 60s Good Health Mother Diabetes Paternal Grandfather also richardson d NH's Cancer-colon Paternal Grandmother Relation Name Status Comments Father Maternal Grandfather Maternal Grandmother Mother Paternal Grandfather Paternal Grandmother Social History Tobacco Use Types Packs/Day Years Used Date Smoking Tobacco: Never Smokeless Tobacco: Never Tobacco Cessation:Counseling Given: Yes Alcohol Use Standard Drinks/Week Comments Yes 0 (1 standard drink = 0.6 oz pur e alcohol) rare Comments No Sex and Gender Information Value Date Recorded Sex Assigned at Not on file Legal Sex 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 Gender Identity Not on file Sexual Orientation Not on file 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 on file Not on file Obstetrics History Last Filed Vital Signs Vital Sign Reading Time Taken Comments Blood Pressure 110/76 03/18/2017 9:00 AM CDT Pulse 77 03/18/2017 9:00 AM CDT Temperature 36.4 C (97.5 F) 09/12/2016 8:55 AM PHYSICIAN OFFICE SPECIALIST Respiratory Rate - - Oxygen Saturation 100% [...] Hepatitis C screening for age 18-79 2000 Hepatitis B series for 19+ (1 of 3 - 19+ 3-dose series) 2001 Depression screening for age 12+ 09/12/2017 09/12/2016, 12/18/2015 BMI (ht and wt on same day) for age 18+ 03/06/2018 03/06/2017, 09/12/2016, 02/01/2016, Additional history exists Tetanus booster 01/01/2022 01/02/2012, 11/25/2004 COVID-19 vaccine series ( season) 2024 Influenza Vaccine (#1) 2025 04/29/2016 Pap test for age 21-65 02/16/2026 , 02/16/2021, 09/12/2016, Additional history exists Pneumococcal series for age 6-49 Aged Out No longer eligible based on patient's age to complete this topic Procedures Procedure Name Priority Date/Time Associated Diagnosis Comments LOSS PREVENTION REPRESENTATIVE THIN PREP PAP SCREEN IMAGED Routine 02/16/2021 1:00 PM CDT from Last 3 Months or Most Recently Relevant to Health Maintenance Results * LOSS PREVENTION REPRESENTATIVE THIN PREP PAP SCREEN IMAGED (02/16/2021 1:00 PM CDT) Case Report Gynecologic Cytology Report Case: [id number] Authorizing Provider: Alda Rod MD Collected: 02/16/2021 1300 Ordering Location: [facility] Received: 02/19/2021 0839 First Screen: Angela Olsen Specimen: LOSS PREVENTION REPRESENTATIVE ThinPrep Vial Screening, Cervical/Vaginal 03/01/2021 3:05 PM CDT [facility] INTERPRETATION/ RESULT NEGATIVE FOR INTRAEPITHELIAL LESION OR MALIGNANCY (NIL) (none) 03/01/2021 3:05 PM CDT [facility] at 1505 CDT SPECIMEN ADEQUACY Satisfactory for evaluation Endocervical component present 03/01/2021 3:05 PM CDT [facility] HPV REQUEST HPV and PAP 03/01/2021 3:05 PM CDT [facility] Date of LMP 01/29/2021 03/01/2021 3:05 PM CDT [facility] Last Pap Date 09/11/2016 03/01/2021 3:05 PM CDT [facility] Last Pap Result NIL 3:05 PM CDT [facility] Additional Information 03/01/2021 3:05 PM CDT [facility] Comment: Interpreted at [facility] - [address] [facility] [address], [place] [address] Automated Review Successful 03/01/2021 3:05 PM CDT [facility] Comment:Specimen processed s uccessfully by automated permanent waver device, ThinPrep Imaging System, [facility] ANCILLARY TESTING LOSS PREVENTION REPRESENTATIVE HPV Ordered, Please see separate report 03/01/2021 3:05 PM CDT [facility] Note The pap test is a [...] and malignant lesions. 03/01/2021 3:05 PM CDT [facility] Other (Cervical/Vagina l) 02/16/2021 1:00 PM CDT 02/19/2021 8:39 AM CDT us Alda Rod MD PATHOLOGY/CYTOLOGY Final Result [facility] [address] [place] [address], [place] from Last 3 Months or Most Recently Relevant to Health Maintenance Care Teams Outside Salesman Relationship Specialty Start Date End Date Pcp, No . PCP - General 08/03/24
[2025-03-24 04:17] VITALS: BP 129/72; PULSE 78; RESP 20; TEMP 36.7; O2SAT 97; BMI 46.8
--- NOTE | 2025-03-24 04:36 | CRLHL7_ITS ---
For Patients: As a result of the Century Cures Act, medical imaging exams and procedure reports are released immediately into your electronic medical record. You may view this report before your referring provider. If you have questions, please contact your health care provider. INDICATION: Chest pain. Dyspnea. COMPARISON: February 04, 2017 TECHNIQUE: PA and lateral views of the chest were acquired FINDINGS: TUBES AND LINES: None. HEART AND MEDIASTINUM: Mildly enlarged heart. LUNGS AND PLEURAL SPACES: The lungs appear normal.The pleural spaces are unremarkable. OSSEOUS STRUCTURES: Age-appropriate appearance. No acute focal finding. IMPRESSION: Mildly enlarged heart. Lungs and pleural spaces appear normal. Dictated by Saurabh Sumner MD @ 03/24/2025 5:19:10 AM (Electronically Signed)
--- NOTE | 2025-03-24 04:43 | ED.GENADULT ---
HPI - General Adult General Chief complaint: Shortness of Breath/Dyspnea Stated complaint: shortness of breath Time Seen by Provider: 03/24/25 04:24 Source: patient Mode of arrival: ambulatory Limitations: no limitations History of Present Illness HPI narrative: 44-year-old female presents to the emergency department with sudden onset of sensation of shortness of breath, nonexertional accompanied by a burning sensation diffusely throughout the chest 1 hour and 15 minutes prior to arrival. No trauma or injury. No fever or recent productive cough. Reports a history of DVT 5 years ago, was anticoagulated on Xarelto for 6 months per her report. She had hematology workup this was found to be benign. It does not sound as though it was recommended for her to stay on anticoagulation long-term. She is worried that this event could be a pulmonary embolism. Her symptoms did not worsen with exertion. There is no palpitations. She is not experiencing any headache, neuro changes, nausea. Appetite has been normal. Activity level normal. No recent medication changes. No other symptoms of illness. Did not try any interventions prior to coming to the ED to help with symptoms. She admits that this could potentially be anxiety related. Has been noticing increased swelling throughout the summer in her legs, nothing particularly focal though she does have a little bit of tenderness in her right lower leg from time to time, not new, not persistent based on her description. She has been using more compressive socks without much improvement. She has attributed this to the warm temperatures, as it is bilateral. Denies tobacco use. Prior history of cholecystectomy, uncomplicated Past medical history she reports notable for anxiety, asthma. Her medications remain the notable for Lexapro Nexium appropriate in antihistamines and asthma medications. Past medical history also lists GERD, obesity and sleep apnea. ROS is notable for the chest and breathing symptoms as above, otherwise denies times 12 systems with the exception of the swelling of the legs as described above. Related Data Home Medications ?Medication ?Instructions ?Recorded ?Confirmed cetirizine 10 mg tablet 10 mg PO DAILY 04/17/22 12/26/24 cholecalciferol (vitamin D3) 125 125 mcg PO DAILY 04/17/22 12/26/24 mcg (5,000 unit) tablet esomeprazole magnesium 20 mg 20 mg PO BID 04/17/22 12/26/24 capsule,delayed release fluticasone propionate 50 2 spray intranasal QDAY 02/13/23 12/26/24 mcg/actuation nasal spray,suspension (Flonase Allergy Relief) acetaminophen [Tylenol] PO 04/14/24 12/26/24 fexofenadine 180 mg tablet 180 mg PO .PRN 05/27/24 12/26/24 (Petra Allergy) polyethylene glycol 3350 17 4 g PO QDAY PRN 05/27/24 12/26/24 gram/dose oral powder (Miralax) sennosides 8.6 mg tablet (Natural 8.6 mg PO QDAY PRN 05/27/24 12/26/24 Senna Laxative) glucosamine sulfate 500 mg tablet 500 mg PO QDAY 09/16/24 12/26/24 (Glucosamine) turmeric 400 mg capsule mg PO 09/16/24 12/26/24 magnesium glycinate 100 mg (as 200 mg PO QDAY 12/16/24 12/26/24 glycinate) tablet Previous Rx's ?Medication ?Instructions ?Recorded fluticasone 100 mcg-salmeterol 50 1 inh inhalation BID #60 ea 03/13/23 mcg/dose blistr powdr for inhalation epinephrine 0.3 mg/0.3 mL 0.3 ml IM ONCE PRN anaphylaxis #2 01/15/24 injection, auto-injector ea bupropion HCl 150 mg 24 hr tablet, 150 mg PO DAILY #90 tabs 11/15/24 extended release albuterol sulfate 90 mcg/actuation 2 puff inhalation Q3-6H PRN 12/26/24 aerosol inhaler shortness of breath or wheezing #8.5 grams cyclobenzaprine 10 mg tablet 10 mg PO TID PRN muscle spasm #30 12/26/24 tabs prednisone 20 mg tablet See Rx Instructions PO QDAY #12 12/26/24 tabs escitalopram oxalate 20 mg tablet 20 mg PO QDAY #90 tabs 02/21/25 (Lexapro) Allergies Allergy/AdvReac Type Severity Reaction Status Date / Time hazelnut Allergy Severe Verified 03/24/25 04:20 avocado Allergy Intermediate Numbness Verified 03/24/25 04:20 penicillin V Allergy Intermediate Rash Verified 03/24/25 04:20 nickel Allergy Mild Rash Verified 03/24/25 04:20 estrogens, conjugated AdvReac Intermediate dvt Verified 03/24/25 04:20 PFSH PFSH Medical History Elevated ALT measurement ?R74.01 - Elevation of levels of liver transaminase levels (ICD-10) Plantar fasciitis of right foot ?M72.2 - Plantar fascial fibromatosis (ICD-10) Ganglion of left knee ?M67.462 - Ganglion, left knee (ICD-10) Acute deep vein thrombosis (DVT) of lower extremity (02/17/20) ?I82.409 - Acute embolism and thrombosis of unspecified deep veins of unspecified lower extremity (ICD-10) Surgical History History of laparoscopic cholecystectomy (03/22/24) ?Z90.49 - Acquired absence of other specified parts of digestive tract (ICD-10) History of carpal tunnel surgery of left wrist (05/19/19) ?Z98.890 - Other specified postprocedural states (ICD-10) History of carpal tunnel surgery of right wrist (05/09/15) ?Z98.890 - Other specified postprocedural states (ICD-10) Social History Narrative: , [employer], 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 Smoking Status: Never smoker Do you use any of these nicotine containing products: None Second hand tobacco smoke exposure: No How often do you have a drink containing alcohol: 2-4 times a month AUDIT-C Alcohol total score: 2 Non-prescribed substance use: denies use Caffeine: No Are you using contraception or practicing any form of control: No Exam Const: Vital Signs, click to edit/add: Vital Signs - 24 hr 03/24/25 04:17 03/24/25 05:04 03/24/25 05:08 Temperature 98.0 F Pulse Rate 70 Pulse Rate [Right Pulse Oximeter] 78 Respiratory Rate 20 18 Blood Pressure 110/63 Blood Pressure [Ri ght Upper Arm] 129/72 Pulse Oximetry 97 97 95 Oxygen Delivery Me thod Room Air 03/24/25 05:48 Temperature Pulse Rate 69 Pulse Rate [Right Pulse Oximeter] Respiratory Rate 18 Blood Pressure 110/61 Blood Pressure [Ri ght Upper Arm] Pulse Oximetry 95 Oxygen Delivery Me thod Documenting provider has reviewed patient's vital signs: yes Common normals: no apparent distress General appearance: cooperative and well kempt HENMT: Common normals: normocephalic, moist oral mucous membranes and oropharynx normal Head and scalp: normocephalic Mouth: oral and palatal mucosa normal Throat: posterior oropharynx normal Eye: Common normals: conjunctivae normal General eye: normal appearance of both eyes Conjunctiva: conjunctiva(e) normal Neck & C-Spine: Common normals: no lymphadenopathy General: normal visual inspection Resp: Common normals: normal respiratory effort, no use of accessory muscles and clear to auscultation bilaterally Effort & inspection: able to speak in complete sentences Auscultation: clear to auscultation bilaterally Cardio: Common normals: regular rate, regular rhythm, S1 normal heart sound, S2 normal heart sound and no murmurs Rate: regular rate Rhythm: regular rhythm Heart sounds: S1 normal and S2 normal GI: Common normals: Normal to inspection, nondistended, normoactive bowel sounds present, soft to palpation, non-tender, no hepatosplenomegaly and no masses Palpation: soft and no hepatosplenomegaly Extremity: Other: Trace amount of bilateral dependent appearing edema. No palpable cords. There are a few superficial spider veins but negative Homans, no asymmetry. Neuro: Common normals: moves all extremities Speech: speech normal Psych: Common normals: speech normal Appearance: well kempt Attitude: engaged Activity/motor behavior: appropriate eye contact Speech: normal speech Mood and affect: euthymic mood Insight: insight good Judgement: judgment good Skin: Common normals: no rashes or lesions noted General skin exam: no rashes or lesions noted Course Course ED Course: 42-year-old female with prior history of DVT presenting to the ED with sudden onset of shortness of breath that woke her from sleep 1 hour and 15 minutes prior to presentation. Patient concern with pulmonary embolism. There is no demonstrated tachycardia or hypoxia. Symptoms did not worsen on exertion. Does seem to be fairly low risk for PE based on presentation but I do recommend that we do a D-dimer test. Counseled patient of the potential pitfalls of this test and may need to do more comprehensive imaging. Unlikely that cannot exclude 2 coronary syndrome, heart failure, upper respiratory infection, musculoskeletal etiology, GERD, asthma exacerbation, anxiety, amongst others. Will obtain EKG, placed on cardiac catheterization technician, run serial troponins, basic labs including a lipase to look for an atypical presentation of pancreatitis, chest x-ray. If D-dimer is positive will do further workup for pulmonary embolism, patient seems as though she would be accepting of anxiety or other fairly benign etiology based on my initial exam. No initial treatments are recommended Reevaluation(s) Time of Reevaluation #1: 06:08 Reevaluation #1: Counseled patient on lab and CT findings. No evidence of pulmonary embolism, infiltrates, heart failure, heart attack, pancreatitis or other dangerous etiology. I suspect that this was triggered by GERD by may have been exacerbated by her report of recent stress and anxiety. Recommended [id number] Tylenol and antacids to see how this improves symptoms. Alarm symptoms reviewed that would warrant ED presentation. If she has persistent symptoms, I would recommend primary care follow-up further workup after an empiric trial of antacids. Written instructions provided. She verbalizes understanding and agreement. Vital Signs Vital signs: Initial Vital Signs Respiratory Effort Normal, Spontaneous, Non-Labored 03/24/25 04:13 Respiratory Depth Normal 03/24/25 04:13 Respiratory Pattern Normal 03/24/25 04:13 Vital Signs Temperature 98.0 F 03/24/25 04:17 Pulse Rate 78 03/24/25 04:17 Respiratory Rate 20 03/24/25 04:17 Blood Pressure 129/72 03/24/25 04:17 Pulse Oximetry 97 03/24/25 04:17 Oxygen Delivery Method Room Air 03/24/25 04:17 Temperature 98.0 F 03/24/25 04:17 Pulse Rate 69 03/24/25 05:48 Respiratory Rate 18 03/24/25 05:48 Blood Pressure 110/61 03/24/25 05:48 Pulse Oximetry 95 03/24/25 05:48 Oxygen Delivery Method Room Air 03/24/25 04:17 Medical Decision Making Lab Data Lab results reviewed: Yes I reviewed the patient's lab results Lab results narrative: No significant leukocytosis or anemia. D-dimer is elevated, will order CT PA. Remainder of electrolytes, renal function and initial troponins are reassuring. Lipase normal Labs: Lab Results 08/28/25 08/28/25 Range/Units 04:36 04:44 WBC 6.37 (4.50-11.00) K/uL RBC 4.06 (4.00-5.20) m/uL Hgb 11.3 L (12.0-16.0) gm/dL Hct 35.1 (33.0-51.0) % MCV 87 (80-100) fL MCH 28 (26-34) pg MCHC 32 (32-36) gm/dL RDW Coeff of Sujatha 13.9 (11.5-15.5) % Plt Count 239 (140-440) K/uL Neut % (Auto) 55.5 (42.0-72.0) % Lymph % (Auto) 26.7 (20-44) % [place] % (Auto) 9.9 (0.0-11.0) % Eos % (Auto) 7.1 H (0.0-7.0) % Baso % (Auto) 0.6 (0.0-3.0) % Neut # (Auto) 3.54 (1.7-7.0) K/uL Lymph # (Auto) 1.70 (0.90-2.90) K/uL [place] # (Auto) 0.60 (0.00-0.90) K/UL Eos # (Auto) 0.50 (0.00-0.50) K/uL Baso # (Auto) 0.04 (0.00-0.30) K/uL Abs Immat Gran (auto) 0.01 (0.00-0.30) K/uL Imm/Tot Granulo (auto) 0.2 % D-Dimer Quant (PE/DVT) 1.84 H (0.00-0.50) ug/ml Sodium 137 (135-149) mmol/L Potassium 4.1 (3.6-5.1) mmol/L Chloride 105 (96-114) mmol/L Carbon Dioxide 26 (20-32) mmol/L Anion Gap 6 L (7-15) mEq/L BUN 19 (5-24) mg/dL Creatinine 0.7 (0.5-1.5) mg/dL Estimated Creat Clear 101.81 Estimated GFR 111 ml/min Glucose 124 H (60-115) mg/dL Calcium 8.5 (8.4-10.6) mg/dL Total Bilirubin 0.3 (0.1-1.5) mg/dL AST 23 (12-35) U/L ALT 19 (4-35) U/L Alkaline Phosphatase 60 (40-150) U/L Troponin I < 0.01 (0.01-0.04) ng/mL NT-Pro-B Natriuret Pep 56 (See Note) pg/mL Total Protein 6.6 (6.0-8.3) g/dL Albumin 3.5 (3.3-5.0) g/dL Lipase 55 (23-300) U/L POC Troponin I 0.01 (0.01-0.04) ng/ml Imaging Data Chest x-ray: Attestation: I have reviewed the pertinent imaging results. My impression: Mild cardiomegaly but no effusions, infiltrates or mediastinal widening Radiologist's impression: IMPRESSION: Mildly enlarged heart. Lungs and pleural spaces appear normal. Dictated by Saurabh Sumner MD @ 03/24/2025 5:19:[address] scan - chest: Attestation: I have reviewed the pertinent imaging results. My impression: No infiltrates, pulmonary embolism, aortic abnormality. Normal CT PA Radiologist's impression: FINDINGS: : HEART and MEDIASTINUM: The heart size is normal. There is no mediastinal or hilar adenopathy or mass. There is no pericardial effusion. PULMONARY ARTERIAL CIRCULATION: There is no visible intraluminal filling defect to suggest pulmonary embolus. LUNGS and PLEURAL SPACES: The lungs show no focal consolidation or mass. The airways appear normal.There is no pleural effusion, pneumothorax or pleural based mass. VISUALIZED UPPER ABDOMEN: Hepatic steatosis. Cholecystectomy. Otherwise, the limited visualized upper abdominal structures appear normal. OSSEOUS STRUCTURES: Age-appropriate appearance. No acute fracture or destructive process. TUBES and LINES: None. IMPRESSION: No findings of pulmonary embolus. Lungs and pleural spaces appear normal. Please note that all CT scans at this facility use dose modulation, iterative reconstruction, and/or weight-based dosing when appropriate to reduce radiation dose to as low as reasonably achievable. Dictated by Saurabh Sumner MD @ 03/24/2025 5:56:38 AM ECG Data Attestation: I personally reviewed and interpreted this ECG as follows: Interpretation: Sinus rhythm with a rate of 73. Intervals appear ill normal, there is a slight left axis deviation. No significant ST or T-wave abnormalities. No ischemia. Normal EKG. Discharge Plan Discharge Clinical Impression: Shortness of breath at rest Patient Disposition: Home, Self-Care Condition: Stable Instructions: Shortness of Breath (ED) Additional Instructions: As we discussed, the CT scan does not show any signs of blood clot in the lungs which is great news. I do not recommend ultrasound of your legs today since the swelling seems to be related to venous insufficiency and is symmetric. The remainder of the workup does not show any signs of heart failure, heart attack, abnormal heart rhythm, anemia, electrolyte abnormality, pancreatitis, significant infection or inflammation or other dangerous etiology. As we discussed, this could be related to gastric reflux, esophageal spasm, stress, many other things. It is okay to use Tylenol and antacids to see if this improves her symptoms. If you have persistent symptoms, I would recommend primary care follow-up for re-evaluation. Is return to the emergency department if you have severe shortness of breath, especially with exertion and if accompanied by chest pain, high fevers or other alarming symptoms. It is safe to resume all typical duties today. Activity Level: No Restrictions Discharge Diet: Regular Prescriptions: No Action cholecalciferol (vitamin D3) 125 mcg (5,000 unit) tablet 125 mcg PO DAILY esomeprazole magnesium 20 mg capsule,delayed release(DR/EC) 20 mg PO BID cetirizine 10 mg tablet 10 mg PO DAILY polyethylene glycol 3350 [Miralax] 17 gram/dose powder 4 g PO QDAY PRN magnesium glycinate 100 mg tablet 200 mg PO QDAY cyclobenzaprine 10 mg tablet 10 mg PO TID PRN (Reason: muscle spasm) Qty: 30 0RF prednisone 20 mg tablet See Rx Instructions PO QDAY Qty: 12 0RF Rx Instructions: 40 mg QD for 4D, then 20 mg QD for 4D. Take with food orally every day; albuterol sulfate 90 mcg/actuation HFA aerosol inhaler 2 puff inhalation Q3-6H PRN (Reason: shortness of breath or wheezing) Qty: 8.5 4RF fluticasone propionate [Flonase Allergy Relief] 50 mcg/actuation spray,suspension 2 spray intranasal QDAY Rx Instructions: administer into each nostril fluticasone propion-salmeterol 100-50 mcg/dose blister with device 1 inh inhalation BID Qty: 60 12RF sennosides [Natural Senna Laxative] 8.6 mg tablet 8.6 mg PO QDAY PRN acetaminophen [Tylenol] PO fexofenadine [Petra Allergy] 180 mg tablet 180 mg PO .PRN turmeric 400 mg capsule PO glucosamine sulfate [Glucosamine] 500 mg tablet 500 mg PO QDAY Rx Instructions: administer with a meal epinephrine 0.3 mg/0.3 mL auto-injector 0.3 ml IM ONCE PRN (Reason: anaphylaxis) Qty: 2 0RF bupropion HCl 150 mg tablet extended release 24 hr 150 mg PO DAILY Qty: 90 3RF escitalopram oxalate [Lexapro] 20 mg tablet 20 mg PO QDAY Qty: 90 0RF Follow Up/Referrals: Provider,Not a Local [Primary Care Provider, Family Practice] Stand Alone Forms: [facility] Inst[facility]
[2025-03-24 04:51] LABS: Hematocrit 35.1 % (33.0-51.0); Hemoglobin* 11.3 gm/dL (12.0-16.0); Immature Granulocytes Abs Auto 0.01 K/uL (0.00-0.30); Immature Granulocytes Pct Auto 0.2 %; Lymphocytes Absolute Auto 1.70 K/uL (0.90-2.90); Mean Corpuscular HGB Conc 32 gm/dL (32-36); Mean Corpuscular Hemoglobin 28 pg (26-34); Mean Corpuscular Volume 87 fL (80-100); RDW Coefficient of Variation % 13.9 % (11.5-15.5); Red Blood Count 4.06 m/uL (4.00-5.20); White Blood Count* 6.37 K/uL (4.50-11.00)
[2025-03-24 04:52] LABS: Slide Review Reflex No
[2025-03-24 05:02] LABS: Troponin, Point-of-Care* 0.01 ng/ml (0.01-0.04)
[2025-03-24 05:04] VITALS: O2SAT 97
[2025-03-24 05:06] LABS: Albumin* 3.5 g/dL (3.3-5.0); Chloride* 105 mmol/L (96-114); Potassium* 4.1 mmol/L (3.6-5.1); Sodium* 137 mmol/L (135-149)
[2025-03-24 05:08] VITALS: BP 110/63; PULSE 70; RESP 18; O2SAT 95
[2025-03-24 05:09] LABS: D Dimer Quantitative* 1.84 ug/ml (0.00-0.50)
[2025-03-24 05:09] LABS: Alanine Aminotransferase* 19 U/L (4-35); Alkaline Phosphatase* 60 U/L (40-150); Anion Gap 6 mEq/L (7-15); Aspartate Amino Transferase* 23 U/L (12-35); Bilirubin Total* 0.3 mg/dL (0.1-1.5); Blood Urea Nitrogen* 19 mg/dL (5-24); Carbon Dioxide* 26 mmol/L (20-32); Creatinine* 0.7 mg/dL (0.5-1.5); Est. Creatinine Clearance* 101.81; Estimated Glomerular Filt Rate 111 ml/min; Total Protein* 6.6 g/dL (6.0-8.3)
[2025-03-24 05:10] LABS: Calcium* 8.5 mg/dL (8.4-10.6); Glucose* 124 mg/dL (60-115)
--- NOTE | 2025-03-24 05:17 | CRLHL7_ITS ---
For Patients: As a result of the Century Cures Act, medical imaging exams and procedure reports are released immediately into your electronic medical record. You may view this report before your referring provider. If you have questions, please contact your health care provider. INDICATION: Dyspnea. History of DVT. Clinical signs and symptoms of pulmonary embolus. COMPARISON: February 04, 2017 TECHNIQUE: : CT examination of the chest was performed with the uneventful intravenous administration of 95 cc of Isovue 370 while thin axial sections were obtained from above the apices of the lungs to the lung bases. The examination was timed as a pulmonary artery angiogram. 3D reformats/MIP imaging was provided. Please note that all CT scans at this facility use dose modulation, iterative reconstruction, and/or weight-based dosing when appropriate to reduce radiation dose to as low as reasonably achievable. FINDINGS: : HEART and MEDIASTINUM: The heart size is normal. There is no mediastinal or hilar adenopathy or mass. There is no pericardial effusion. PULMONARY ARTERIAL CIRCULATION: There is no visible intraluminal filling defect to suggest pulmonary embolus. LUNGS and PLEURAL SPACES: The lungs show no focal consolidation or mass. The airways appear normal.There is no pleural effusion, pneumothorax or pleural based mass. VISUALIZED UPPER ABDOMEN: Hepatic steatosis. Cholecystectomy. Otherwise, the limited visualized upper abdominal structures appear normal. OSSEOUS STRUCTURES: Age-appropriate appearance. No acute fracture or destructive process. TUBES and LINES: None. IMPRESSION: No findings of pulmonary embolus. Lungs and pleural spaces appear normal. Please note that all CT scans at this facility use dose modulation, iterative reconstruction, and/or weight-based dosing when appropriate to reduce radiation dose to as low as reasonably achievable. Dictated by Saurabh Sumner MD @ 03/24/2025 5:56:38 AM (Electronically Signed)
[2025-03-24 05:20] LABS: NT Pro B Type NatriureticPept* 56 pg/mL (See Note)
[2025-03-24 05:48] VITALS: BP 110/61; PULSE 69; RESP 18; O2SAT 95
[2025-03-24 06:10] VITALS: BP 112/68; PULSE 74; RESP 18; TEMP 36.7; O2SAT 95
[2025-03-24 06:11] VITALS: BP 112/68; PULSE 74; RESP 18; TEMP 36.7
== END 2025-03-24 06:16 | disposition home or self-care (01) ==
PROVIDERS: Emergency Provider Family Medicine
DX: R06.02 Shortness of breath (principal); I51.7 Cardiomegaly
CPT/HCPCS: 36415; 71046; 71275; 80053; 83690; 83880; 84484; 85025; 85379; 93005; 94761; 99284; 99285; Q9967

== ENCOUNTER 2025-05-13 18:04 | Emergency (ER) | payer OTHER, SELFPAY ==
--- OUTSIDE RECORDS SUMMARY | 2025-05-13 18:06 | XMS_ITS | Clinical Summary ---
Author Organization [facility] Address [address] [place] [id number] Care Team Providers Care Pattern Scratcher Name Role Phone Pcp, No Primary Care [...] ons:Allergic rhinitis due to pollen Inhale 1 [place] into both nostrils once daily. 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 Respiratory Rate - - Oxygen Saturation [...] of 3 - 19+ 3-dose series) 2001 HPV series for age 9-45 (1 - 3-dose SCDM series) 2009 Depression screening for age 12+ 09/12/2017 09/12/2016, 12/18/2015 BMI (ht and wt on same day) for age 18+ 03/06/2018 03/06/2017, 09/12/2016, 02/01/2016, Additional history exists Tetanus booster 01/01/2022 01/02/2012, 11/25/2004 COVID-19 vaccine series ( season) 2025 Influenza Vaccine (#1) 2025 04/29/2016 Pap test for age 21-65 02/16/2026 , 02/16/2021, 09/12/2016, Additional history exists RSV vaccine for adults or (1 - 1-dose 75+ series) 2057 Pneumococcal series for age 6-49 Aged Out No longer eligible based on patient's age to complete this topic Procedures Procedure Name Priority Date/Time Associated Diagnosis Comments SALES AGENT THIN PREP PAP SCREEN IMAGED Routine 02/16/2021 1:00 PM CDT from Last 3 Months or Most Recently Relevant to Health Maintenance Results * SALES AGENT THIN PREP PAP SCREEN IMAGED (02/16/2021 1:00 PM CDT) Case Report Gynecologic Cytology Report Case: [id number] Authorizing Provider: Alda Rod MD Collected: 02/16/2021 1300 Ordering Location: [facility] Received: 02/19/2021 0839 First Screen: Angela Olsen Specimen: SALES AGENT ThinPrep Vial Screening, Cervical/Vaginal 03/01/2021 3:05 PM CDT [facility] INTERPRETATION/ RESULT NEGATIVE FOR INTRAEPITHELIAL LESION OR MALIGNANCY (NIL) (none) 03/01/2021 3:05 PM CDT [facility] at 1505 CDT SPECIMEN ADEQUACY Satisfactory for evaluation Endocervical component present 03/01/2021 3:05 PM CDT [facility] HPV REQUEST HPV and PAP 03/01/2021 3:05 PM CDT [facility] Date of LMP 01/29/2021 03/01/2021 3:05 PM CDT [facility] Last Pap Date 09/11/2016 03/01/2021 3:05 PM CDT [facility] Last Pap Result NIL 3:05 PM CDT [facility] Additional Information 03/01/2021 3:05 PM CDT [facility] Comment: Interpreted at [facility] - [address] [facility] [address], [place] [address] Automated Review Successful 03/01/2021 3:05 PM CDT [facility] Comment:Specimen processed s uccessfully by automated rn informatics device, ThinPrep Imaging System, [employer] ANCILLARY TESTING SALES AGENT HPV Ordered, Please see separate report 03/01/2021 3:05 PM CDT [facility] Note The pap test is a [...] and malignant lesions. 03/01/2021 3:05 PM CDT [facility] Other (Cervical/Vagina l) 02/16/2021 1:00 PM CDT 02/19/2021 8:39 AM CDT us Alda Rod MD PATHOLOGY/CYTOLOGY Final Result [facility] [address] [place] [address], [place] from Last 3 Months or Most Recently Relevant to Health Maintenance Care Teams Pattern Scratcher Relationship Specialty Start Date End Date Pcp, No . PCP - General 08/03/24
[2025-05-13 18:11] VITALS: BP 143/97; PULSE 98; RESP 20; TEMP 36.4; O2SAT 97; BMI 48.9
--- NOTE | 2025-05-13 18:31 | CRLHL7_ITS ---
For Patients: As a result of the Century Cures Act, medical imaging exams and procedure reports are released immediately into your electronic medical record. You may view this report before your referring provider. If you have questions, please contact your health care provider. Indication: Lower back pain Technique: Lumbar spine, 3 views. Comparison: None. Findings/Impression: Examination is limited by suboptimal radiographic penetration, particularly on lateral views. No evident acute fracture. Vertebral body heights are maintained. Minimal multilevel degenerative disc disease. Right upper quadrant surgical clips. Dictated by Fide Carmona MD @ 05/13/2025 6:59:30 PM (Electronically Signed)
--- NOTE | 2025-05-13 18:32 | ED.BACK ---
HPI - Back Pain/Injury General Chief Complaint: Back Injury/Pain Stated Complaint: back pain moving down toward legs Time Seen by Provider: 05/13/25 18:17 History of Present Illness HPI Narrative: Patient is a 44-year-old woman comes in today with several days of back pain. She was seen in urgent care yesterday and started on Flexeril and prednisone. The pain is been improving slightly but she is having worsening of than numbness down the right leg and now involving the left leg. She has had no fevers no chills no night sweats no significant difficulties walking. She does not feel strong she normally does. She has had no bowel or bladder symptoms no fevers no chills. No recent injuries have been noted. Patient is otherwise in her usual state of health. Related Data Home Medications ?Medication ?Instructions ?Recorded ?Confirmed cetirizine 10 mg tablet 10 mg PO DAILY 04/17/22 05/12/25 cholecalciferol (vitamin D3) 125 125 mcg PO DAILY 04/17/22 05/12/25 mcg (5,000 unit) tablet esomeprazole magnesium 20 mg 20 mg PO BID 04/17/22 05/12/25 capsule,delayed release fluticasone propionate 50 2 spray intranasal QDAY 02/13/23 05/12/25 mcg/actuation nasal spray,suspension (Flonase Allergy Relief) fexofenadine 180 mg tablet 180 mg PO .PRN 05/27/24 05/12/25 (Petra Allergy) glucosamine sulfate 500 mg tablet 500 mg PO QDAY 09/16/24 05/12/25 (Glucosamine) magnesium glycinate 100 mg (as 200 mg PO QDAY 12/16/24 05/12/25 glycinate) tablet Previous Rx's ?Medication ?Instructions ?Recorded epinephrine 0.3 mg/0.3 mL 0.3 ml IM ONCE PRN anaphylaxis #2 01/15/24 injection, auto-injector ea bupropion HCl 150 mg 24 hr tablet, 150 mg PO DAILY #90 tabs 11/15/24 extended release albuterol sulfate 90 mcg/actuation 2 puff inhalation Q3-6H PRN 12/26/24 aerosol inhaler shortness of breath or wheezing #8.5 grams escitalopram oxalate 20 mg tablet 20 mg PO QDAY #90 tabs 02/21/25 (Lexapro) fluticasone 100 mcg-salmeterol 50 1 inh inhalation BID #60 ea 03/24/25 mcg/dose blistr powdr for inhalation valacyclovir 1 gram tablet 1,000 mg PO TID #21 tabs 05/03/25 (Valtrex) cyclobenzaprine 10 mg tablet 10 mg PO TID PRN muscle spasm #30 05/12/25 tabs prednisone 20 mg tablet 40 mg (2 x 20 mg) PO QDAY #10 tabs 05/12/25 Allergies Allergy/AdvReac Type Severity Reaction Status Date / Time hazelnut Allergy Severe Verified 05/12/25 14:23 avocado Allergy Intermediate Numbness Verified 05/12/25 14:23 peanut Allergy Intermediate Unknown Verified 05/12/25 14:23 penicillin V Allergy Intermediate Rash Verified 05/12/25 14:23 nickel Allergy Mild Rash Verified 05/12/25 14:23 tree nut Allergy Verified 05/12/25 14:23 estrogens, conjugated AdvReac Intermediate dvt Verified 05/12/25 14:23 Review of Systems Status of ROS: Reports: 10 or more systems reviewed and unremarkable except as noted in History and below [facility] Medical History Elevated ALT measurement ?R74.01 - Elevation of levels of liver transaminase levels (ICD-10) Plantar fasciitis of right foot ?M72.2 - Plantar fascial fibromatosis (ICD-10) Ganglion of left knee ?M67.462 - Ganglion, left knee (ICD-10) Acute deep vein thrombosis (DVT) of lower extremity (02/17/20) ?I82.409 - Acute embolism and thrombosis of unspecified deep veins of unspecified lower extremity (ICD-10) Surgical History History of laparoscopic cholecystectomy (03/22/24) ?Z90.49 - Acquired absence of other specified parts of digestive tract (ICD-10) History of carpal tunnel surgery of left wrist (05/19/19) ?Z98.890 - Other specified postprocedural states (ICD-10) History of carpal tunnel surgery of right wrist (05/09/15) ?Z98.890 - Other specified postprocedural states (ICD-10) Social History Narrative: , 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 Smoking Status: Never smoker Do you use any of these nicotine containing products: None Second hand tobacco smoke exposure: No How often do you have a drink containing alcohol: 2-4 times a month AUDIT-C Alcohol total score: 2 Non-prescribed substance use: denies use Caffeine: No Are you using contraception or practicing any form of control: No service: No Exam Narrative: Exam Narrative: EXAM GENERAL: Patient appears comfortable and well. EYES: No scleral icterus. LYMPH: No supraclavicular or cervical lymphadenopathy. SKIN: Visible skin seen during exam normal or with benign process only. EXT: No dependent lower extremity pedal edema. HEART: Regular rate and rhythm with no murmurs, rubs, or gallops. LUNGS: Clear to auscultation bilaterally with no crackles or wheezes. ABD: Soft, non tender, non distended. PSYCH: Good eye contact, speech is not pressured. Neurologic cranial nerves 2-12 grossly intact no focal defects. Const: Vital Signs, click to edit/add: Vital Signs - 24 hr 05/13/25 18:11 Temperature 97.5 F L Pulse Rate [Pulse Oximeter] 98 Respiratory Rate 20 Blood Pressure [Ri ght Upper Arm] 143/97 H Pulse Oximetry 97 Oxygen Delivery Me thod Room Air Course Course ED Course: Patient seen examined. X-ray series of the lumbar spine ordered. Vital Signs Vital signs: Initial Vital Signs Temperature 97.5 F L 05/13/25 18:11 Temperature Source Temporal Artery Scan 05/13/25 18:11 Pulse Rate 98 05/13/25 18:11 Respiratory Rate 20 05/13/25 18:11 Blood Pressure 143/97 H 05/13/25 18:11 Blood Pressure Mean 112 H 05/13/25 18:11 Pulse Oximetry 97 05/13/25 18:11 Oxygen Delivery Method Room Air 05/13/25 18:11 Vital Signs Temperature 97.5 F L 05/13/25 18:11 Pulse Rate 98 05/13/25 18:11 Respiratory Rate 20 05/13/25 18:11 Blood Pressure 143/97 H 05/13/25 18:11 Pulse Oximetry 97 05/13/25 18:11 Oxygen Delivery Method Room Air 05/13/25 18:11 Temperature 97.5 F L 05/13/25 18:11 Pulse Rate 98 05/13/25 18:11 Respiratory Rate 20 05/13/25 18:11 Blood Pressure 143/97 H 05/13/25 18:11 Pulse Oximetry 97 05/13/25 18:11 Oxygen Delivery Method Room Air 05/13/25 18:11 MDM - Back Pain/Injury MDM Narrative Medical decision making narrative: Patient presents with lower extremity radicular pain bilaterally with progressive numbness. She has no motor instability. She has had no bowel or bladder symptoms. X-ray shows no acute abnormalities. She has grossly normal on exam. At this time patient will stop her Flexeril and start [place]ward for pain. In addition will continue the prednisone she will contact my office on Friday will schedule an MRI if no improvement. Discharge Plan Discharge Clinical Impression: Back pain Patient Disposition: Home, Self-Care Condition: Stable Instructions: Back Pain (ED) Additional Instructions: Stop Flexeril Begin Hayward for pain. Continue symptomatic treatment for pain. Continue prednisone Contact Dr. Freitas his office on Friday to schedule MRI if no improvement. Return to ER if symptoms worsen. Activity Level: No Restrictions Discharge Diet: Regular Prescriptions: No Action cholecalciferol (vitamin D3) 125 mcg (5,000 unit) tablet 125 mcg PO DAILY esomeprazole magnesium 20 mg capsule,delayed release(DR/EC) 20 mg PO BID cetirizine 10 mg tablet 10 mg PO DAILY magnesium glycinate 100 mg tablet 200 mg PO QDAY albuterol sulfate 90 mcg/actuation HFA aerosol inhaler 2 puff inhalation Q3-6H PRN (Reason: shortness of breath or wheezing) Qty: 8.5 4RF valacyclovir [Valtrex] 1 gram tablet 1,000 mg PO TID Qty: 21 0RF prednisone 20 mg tablet 40 mg PO QDAY Qty: 10 0RF Rx Instructions: Take 2 tabs PO QAM x 5 days cyclobenzaprine 10 mg tablet 10 mg PO TID PRN (Reason: muscle spasm) Qty: 30 0RF fluticasone propionate [Flonase Allergy Relief] 50 mcg/actuation spray,suspension 2 spray intranasal QDAY Rx Instructions: administer into each nostril fexofenadine [Petra Allergy] 180 mg tablet 180 mg PO .PRN glucosamine sulfate [Glucosamine] 500 mg tablet 500 mg PO QDAY Rx Instructions: administer with a meal epinephrine 0.3 mg/0.3 mL auto-injector 0.3 ml IM ONCE PRN (Reason: anaphylaxis) Qty: 2 0RF bupropion HCl 150 mg tablet extended release 24 hr 150 mg PO DAILY Qty: 90 3RF escitalopram oxalate [Lexapro] 20 mg tablet 20 mg PO QDAY Qty: 90 0RF fluticasone propion-salmeterol 100-50 mcg/dose blister with device 1 inh inhalation BID Qty: 60 0RF Follow Up/Referrals: Provider,Not a Local [Primary Care Provider, Family Practice] Stand Alone Forms: [employer] Info Instructions
[2025-05-13 19:23] VITALS: BP 153/100; PULSE 90; RESP 24; O2SAT 97
== END 2025-05-13 19:25 | disposition home or self-care (01) ==
PROVIDERS: Emergency Provider Internal Medicine
DX: M54.16 Radiculopathy, lumbar region (principal)
CPT/HCPCS: 72100; 99283

== ENCOUNTER 2025-05-19 13:35 | Outpatient (CLI) | payer OTHER, SELFPAY ==
--- NOTE | 2025-05-19 13:45 | CRLHL7_ITS ---
For Patients: As a result of the Century Cures Act, medical imaging exams and procedure reports are released immediately into your electronic medical record. You may view this report before your referring provider. If you have questions, please contact your health care provider. INDICATION: Low back pain. COMPARISON: 02/10/2025. TECHNIQUE: Sagittal T1, T2, and STIR sequences. Axial T1 and T2 weighted sequences. FINDINGS: Normal vertebral body alignment. No fractures. No vertebral body loss of height. No spondylolisthesis. No ligamentous injury. No suspicious osseous lesions. Normal conus terminates at L1. T12-L1: No spinal canal neural foraminal narrowing. L1-2: Disc degeneration posterior disc bulge. No narrowing of the spinal canal. No neural foraminal narrowing. L2-3: No spinal canal neural foraminal narrowing. L3-4: Annular bulge. No spinal canal or neural foraminal narrowing. L4-5: Disc degeneration. Prominent right paracentral disc protrusion measures 8 mm in short axis. Mild narrowing of spinal canal. Impingement of the traversing right L5 nerve root. No neural foraminal narrowing. L5-S1: Disc degeneration and posterior disc bulge. No narrowing of spinal canal. No impingement of the traversing S1 nerve roots. No neural foraminal narrowing. Normal visualized SI joints. Normal paraspinal soft tissues. IMPRESSION: 1. Normal alignment. No fractures. 2. At L4-5, prominent right paracentral disc protrusion. Mild narrowing of the spinal canal. Impingement of the traversing right L5 nerve root. 3. No spinal canal or neural foraminal narrowing at the remaining levels Dictated by Manpreet Gordon MD @ 05/20/2025 2:09:52 PM (Electronically Signed)
== END 2025-05-19 13:36 | disposition home or self-care (01) ==
PROVIDERS: PCP Internal Medicine; Visit Provider Internal Medicine
DX: M51.26 Other intervertebral disc displacement, lumbar region (principal)
CPT/HCPCS: 72148

== ENCOUNTER 2025-06-30 08:34 | Outpatient (CLI) | payer OTHER, SELFPAY | END 2025-06-30 08:35 | disposition home or self-care (01) | PROVIDERS: PCP Internal Medicine; Visit Provider Internal Medicine | DX: R73.03 Prediabetes (principal) | CPT/HCPCS: 80053; 80061 ==

== ENCOUNTER 2025-07-15 10:02 | Outpatient (CLI) | payer OTHER, SELFPAY | END 2025-07-15 10:03 | disposition home or self-care (01) | LOC: INJ CL 10:03 | PROVIDERS: PCP Internal Medicine; Visit Provider Family Medicine | DX: M54.16 Radiculopathy, lumbar region (principal); M51.26 Other intervertebral disc displacement, lumbar region | CPT/HCPCS: 64483; Q9966 ==